=== PATIENT | female | born 1955 | race Caucasian/White ===

== ENCOUNTER 2017-03-13 13:31 | Day surgery (SDC) | payer OTHER ==
[2017-03-12 15:52] VITALS: BMI 38.5
[2017-03-13] VITALS (22 sets, daily range): BP systolic 86–147; BP diastolic 48–105; PULSE 60–82; RESP 16–41; Ht 160 cm; Wt 97.0 kg
[~2017-03-13] VITALS: Ht 160 cm; Wt 97.0 kg
[~2017-03-13 13:31] MED LIST: ACET5SOL PO; AMIT100T2 PO; ATEN-51 PO; ATOR20TA38 PO; CLOP75TA27 PO; CYAN100018 PO; ERGO500014 PO; FERR142T5 PO; GLIM4TAB PO; LANT3I SC; LEVO175T6 PO; MOVE FREE ULTR1 EACH PO; MULT-853 PO; OMEP20CA16 PO; ROPI4TAB21 PO; SITA100T8 PO; TIOT18CA INHALATION; TOPI-25 PO; UBID100T7 PO; ZOLP10TA5 PO
[2017-03-13] MEDS ORDERED: TYL2 PO (14:04)
[2017-03-13] MEDS ORDERED: AMIT50TA3 PO (14:05)
[2017-03-13] MEDS ORDERED: INSU300I SQ (14:06)
[2017-03-13] MEDS ORDERED: LEVO200T6 PO (14:07)
[2017-03-13] MEDS ORDERED: LISI2.5T59 PO (14:07)
[2017-03-13] MEDS ORDERED: TOPI200T8 PO (14:09)
[2017-03-13] MEDS ORDERED: ATOR40TA68 PO (14:09)
[2017-03-13] MEDS ORDERED: ERGO500037 PO (14:10)
[2017-03-13] MEDS ORDERED: MULT1TAB6 PO (14:11)
[2017-03-13] MEDS ORDERED: OMEG1CAP2 PO (14:13)
[2017-03-13] MEDS ORDERED: ONDA4TAB8 PO (14:14)
[2017-03-13] MEDS ORDERED: MIDAZOLAM 1 MG/ML 2 ML INJ ONE (15:30)
[2017-03-13] MEDS ORDERED: FENTAnyl 50 MCG/ML VIAL ONE ×2 (15:30→15:44)
[2017-03-13] MEDS ORDERED: LIDOCAINE 1% (MDV) 20 ML INJ ONE (15:30)
[2017-03-13] MEDS ORDERED: IODIXANOL LOCM 50 ML BTL ONE (15:30)
[2017-03-13] MEDS ORDERED: HYDROCODONE/APAP (5/325) TAB PO ONE (18:00)
--- NOTE | 2017-03-14 00:31 | OPR ---
DATE OF OPERATION: 03/13/2017 PREOPERATIVE DIAGNOSIS: Peripheral vascular disease. POSTOPERATIVE DIAGNOSIS: Peripheral vascular disease. PROCEDURES: 1. Abdominal aortogram. 2. Pelvic angiogram. 3. Bilateral lower extremity . 4. Right access 5-Filipino sheath. 5. Left access 7-Filipino sheath. 6. Ultrasound guidance into the central artery on the right and the left. 7. Interpretation and supervision of the angiogram. SURGEON: Rolf Robles MD ANESTHESIA: Local plus IV sedation. CONSENT: Risks, benefits, complications, alternative therapies explained to the patient and the [facility], consent obtained. OPERATIVE TECHNIQUE: The patient was placed in supine position, prepped and draped in usual sterile fashion, 1% lidocaine was used throughout the operation for local anesthesia. Under ultrasonic guidance, access was gained in the right common femoral artery. Guidewire was adva nced through without any difficulty. Subcutaneous tissues dilated. A 5-Filipino sheath was advanced without any resistance over a Bentson guidewire. Rim catheter was advanced into the abdominal aorta . Abdominal aortogram with pelvic angiogram was done. Interpretation and supervision of the aortogram revealed aorta normal, bilateral common iliac arteri es normal, bilateral internal iliac arteries normal, bilateral external iliac arteries normal, bilat eral common femoral arteries normal. Rim catheter was advanced from the right to left; however, there appeared to be a kink at the rim ca theter. We tried different guidewires to undo the kink; however, it would not be undone. Access wa s gained in the left common femoral artery. A 7-Filipino catheter was advanced over a Bentson wire, a nd using a snare, the kink in the rim catheter was undone, and the catheter was removed in its entir ety. Bilateral lower-extremity angiograms were done through the sheath. Interpretation and supervision of the angiogram revealed on the right side, the profunda femoris art jacobo appeared to be extensive vessel. Superficial femoral artery was 100% occluded. It reconstitute d distal to the superficial femoral artery. Popliteal artery and the trifurcations showed all 3 ves sels were opacified; however, the posterior tibial artery was a major blood vessel all the way down to the foot, without any stenosis. On the left side, the left profunda again was an extensive vesse l. Superficial femoral artery was 100% occluded. It reconstituted above the knee with trifurcation that appeared to be normal with 3-vessel runoff all the way down to the foot. At this time, both s heaths were removed, the procedure was terminated. This patient will be needing bilateral femoral popliteal bypass grafting. We discussed with the pat ient. Dictated By: ROLF SHARMA/NTS Conf#: [id number] DID#: [id number]
== END 2017-03-13 21:45 | disposition home or self-care (01) ==
LOC: SDS 13:31
PROVIDERS: ATTEND Thoracic Surgery (Cardiothoracic Vascular Surgery)
DX: I73.9 Peripheral vascular disease, unspecified (principal); I10 Essential (primary) hypertension; E11.65 Type 2 diabetes mellitus with hyperglycemia; E78.2 Mixed hyperlipidemia; I25.10 Atherosclerotic heart disease of native coronary artery without angina pectoris; E03.9 Hypothyroidism, unspecified
CPT/HCPCS: 36200; 75630; 75961; 82962; C1769; C1887; C1894; J1644; J2250; J3010; Q9967; Z7610

== ENCOUNTER 2017-05-20 05:33 | Inpatient (IN) | payer OTHER ==
[2017-05-19 17:22] VITALS: BMI 38.5
[2017-05-20] VITALS (21 sets, daily range): BP systolic 104–181; BP diastolic 47–82; PULSE 64–93; RESP 16–28; Ht 160 cm; Wt 96.0 kg
[~2017-05-20] VITALS: Ht 160 cm; Wt 96.0 kg
[~2017-05-20 05:33] MED LIST changes: -ACET5SOL PO; -AMIT100T2 PO; +AMIT50TA3 PO; -ATOR20TA38 PO; +ATOR40TA68 PO; -ERGO500014 PO; +ERGO500037 PO; +INSU300I SQ; -LANT3I SC; -LEVO175T6 PO; +LEVO200T6 PO; +LISI2.5T59 PO; -MOVE FREE ULTR1 EACH PO; -MULT-853 PO; +MULT1TAB6 PO; +OMEG1CAP2 PO; +ONDA4TAB8 PO; -TOPI-25 PO; +TOPI200T8 PO; +TYL2 PO
[2017-05-20] MEDS ORDERED: FURO20TA3 PO (07:29)
[2017-05-20] MEDS ORDERED: GLIM4TAB PO (07:38)
[2017-05-20 09:29] LABS: AADO2 Arterial 330.3 mmHg (7.0-24.0); Arterial Base Excess -8.3 mmol/L (-3.0-3); Arterial COHb 1.5 % (0.0-3.0); Arterial Fraction of Oxyhgb 96.9 % (93.0-99.0); Arterial HCO3 17.6 mmol/L (22.0-26.0); Arterial MetHb 0.5 % (0.0-1.5); Arterial Total Hemglobin 11.5 g/dl (12.0-18.0); MODE SURGERY
[2017-05-20] MEDS ORDERED: VANCOMYCIN 1 GM INJ IRR ONE (09:38)
[2017-05-20] MEDS: DEXTROSE 5%-0.45% NACL 1,000 ML IV SCH ×3 (09:43→19:05)
[2017-05-20] MEDS ORDERED: HEPARIN 1000 UNITS/NS 500 ML BAG IV ONE (09:44)
[2017-05-20] MEDS ORDERED: PROCHLORPERAZINE 10 MG INJ IV PRN (10:00)
[2017-05-20] MEDS ORDERED: LABETALOL HCL 20MG INJ IV PRN (10:00)
[2017-05-20] MEDS ORDERED: DIPHENHYDRAMINE 50 MG INJ IV PRN (10:00)
[2017-05-20] MEDS ORDERED: INSULIN ASPART [NOVOLOG] 3 ML PEN SC ONE (10:00)
[2017-05-20] MEDS ORDERED: EPHEDrine SULFATE 50 MG/5 ML SYG IV PRN (10:00)
[2017-05-20] MEDS ORDERED: hydrALAzine 20 MG INJ IV PRN (10:00)
[2017-05-20] MEDS ORDERED: TRIMETHOBENZAMIDE 100 MG/ML VIAL IM PRN (10:00)
[2017-05-20] MEDS ORDERED: METOCLOPRAMIDE 10 MG INJ IV PRN ×2 (10:00→15:30)
[2017-05-20] MEDS ORDERED: MEPERIDINE 25 MG INJ IV PRN (10:00)
[2017-05-20] MEDS ORDERED: HYDROmorphONE (0.2 MG/ML) 10ML SYG IV PRN (10:00)
[2017-05-20 10:05] LABS: POTASSIUM 3.3 mmol/L (3.5-5.1)
[2017-05-20] MEDS ORDERED: HEPARIN 10,000 UNITS/ML 1 ML INJ IRR ONE (10:34)
[2017-05-20 11:08] LABS: AADO2 Arterial 380.3 mmHg (7.0-24.0); Arterial Base Excess -9.6 mmol/L (-3.0-3); Arterial COHb 0.8 % (0.0-3.0); Arterial Fraction of Oxyhgb 97.8 % (93.0-99.0); Arterial HCO3 17.3 mmol/L (22.0-26.0); Arterial MetHb 0.5 % (0.0-1.5); Arterial Total Hemglobin 12.1 g/dl (12.0-18.0); MODE VENT - AC
[2017-05-20] MEDS ORDERED: THROMBIN 5000 UNIT VIAL TOP ONE (11:32)
--- NOTE | 2017-05-20 12:02 | OPR ---
Date/Time of Note Date/Time of Note DATE: 05/20/17 TIME: 11:58 Operative Report Procedure Date: May 20, 2017 Preoperative Diagnosis Peripheral vascular disease Postoperative Diagnosis Same Operation Performed Left femoral-popliteal bypass grafting using reversed saphenous vein Left femoral endarterectomy Left popliteal endarterectomy Endoscopic Ceftin saphenous vein harvesting Surgeon: SIDRA SO MD In Tube Conversion Technician: SYLVIA DUNBAR Anesthesia: general Estimated Blood Loss: 10 - 50 ml's Specimens None Grafts/Implants None Pt Condition Post Procedure: stable Indications Peripheral vascular disease Operative\Procedure Findings Patient was taken to the operating room after induction of general anesthesia prepped and draped in usual sterile fashion timeout was called antibiotics was given and I start I am endoscopic technique were used to harvest the saphenous vein from the left groin down to the knee Next the 8 cm incision was made in the groin and 8 cm incision was made in the medial aspect of the left knee The left common femoral artery profunda femoris artery and superficial femoral artery were identified at the Left popliteal artery was identified at the knee Vessel loops were passed around all the artery Patient was given 5000 units of IV heparin the saphenous vein was removed and checks it appeared to have no leak Vascular clamps were applied and the common femoral artery was opened using a 1 cm longitudinal artery Endarterectomy of the common femoral artery was was done Proximal anastomosis was done from the vein to the in femoral artery using 6-0 Prolene continuous suture technique to the beveled end of the vein The distal anastomosis was done in a similar fashion after endarterectomy to the level end of the vein to 1 cm longitudinal arteriotomy at the popliteal artery Both anastomoses were done with 6-0 Prolene continuous suture to Patient had a strong Doppler signal over the popliteal artery distal to the anastomosis Both wounds were irrigated and closed in 2 layers of 2-0 Vicryl suture for the deep 3-0 Vicryl suture for subcu and lennox for the skin Patient tolerated procedure well SIDRA SO MD May 20, 2017 12:02
[2017-05-20] MEDS: HYDROmorphONE (0.2 MG/ML) 10ML SYG IV PRN ×3 (12:47→14:23)
--- NOTE | 2017-05-20 14:57 | HP ---
Date/Time of Note Date/Time of Note DATE: 05/20/17 TIME: 14:44 Assessment/Plan VTE Prophylaxis VTE Prophylaxis Intervention: SCD's Lines/Catheters IV Catheter Type (from Nrs): A Line Urinary Cath still in place: Yes Reason Cath still needed: urinary retention Assessment/Plan Assessment/Plan -Bilateral superficial femoral occlusion status post left femoropopliteal bypass by Dr. Robles. Admit to ICU, continue to follow-up vascular surgery recommendation. -Sleep apnea, continue BiPAP overnight, Dr. Winkler is asked to see patient in pulmonology consultation. -COPD with long-term tobacco use -Diabetes mellitus -Hypertension -Chronic kidney disease stage III -Hypothyroidism, continue levothyroxine Further recommendations based on clinical course. Plan of care discussed with Dr. Juarez. HPI/ROS Admit Date/Time Admit Date/Time May 20, 2017 at 05:33 Hx of Present Illness The patient is 62-year-old female with history of peripheral vascular disease, history of coronary artery disease, status post stents placement in the past, diabetes mellitus, history of CVA in the past, long-standing tobacco dependence with COPD, sleep apnea. Patient is using BiPAP at night at home. Patient also with history of chronic kidney disease stage III, GERD, hypertension, hypothyroidism, anxiety, osteoarthritis. Patient has bilateral superficial femoral occlusion. Patient was evaluated by Dr. Robles in vascular surgery consultation patient was brought to the hospital and underwent left femoral- popliteal bypass grafting using reversed saphenous vein, left femoral endarterectomy, left popliteal endarterectomy. Postoperatively patient will be admitted for further evaluation and management to intensive care unit. ROS Constitutional: no complaints Respiratory: no complaints Cardiovascular: no complaints Gastrointestinal: no complaints Genitourinary: no complaints Musculoskeletal: no complaints Neurologic: no complaints Psychological: no complaints PMH/Family/Social Past Medical History Per HPI Medical History: coronary artery disease, diabetes, GERD, hypertension, hypothyroid, renal disease Past Surgical History Status post left endarterectomy in March 2016, status post coronary stent placement, details are not available. Family History Significant Family History: no pertinent family hx Social History Alcohol Use: none Smoking Status: Current every day smoker Drug Use: none Exam/Review of Systems Vital Signs Vitals Vital Signs Date Time Temp Pulse Resp B/P Pulse Ox O2 Delivery O2 Flow Rate FiO2 05/20/17 13:08 70 18 133/51 98 Nasal Cannula 2.0 05/20/17 12:07 98.2 Labs Result Diagram: 05/20/17 0914 Medications Medications Current Medications Dextrose/Sodium Chloride (D5-1/2ns) 1,000 ml @ 60 mls/hr [id number] IV Last administered on 05/20/17t 12:14; Start 05/20/17 at 06:30 IGLESIA MENSAH May 20, 2017 14:56
[2017-05-20] MEDS ORDERED: GLUCOSE GEL 15 GRAM TUBE BUCCAL PRN (15:30)
[2017-05-20] MEDS ORDERED: ALBUTEROL 0.083% (NEB) 2.5 MG/3 ML AMP NEB PRN (15:30)
[2017-05-20] MEDS ORDERED: GLUCAGON 1 MG INJ IM PRN (15:30)
[2017-05-20] MEDS ORDERED: DEXTROSE 50% 50 ML SYRINGE IV PRN ×2 (15:30)
[2017-05-20] MEDS ORDERED: NACL 0.9% 3 ML SYG IV SCH (15:30)
[2017-05-20] MEDS ORDERED: IPRATROPIUM (NEB) 0.5 MG/2.5 ML AMP NEB PRN (15:30)
[2017-05-20] MEDS ORDERED: GLUCOSE GEL 15 GRAM TUBE PO PRN ×2 (15:30)
[2017-05-20] MEDS ORDERED: ACETAMINOPHEN 650MG/20.3ML CUP PO PRN (15:30)
[2017-05-20] MEDS: FENTAnyl 50 MCG/ML VIAL IV PRN ×2 (15:37→16:15)
[2017-05-20] MEDS: INSULIN ASPART [NOVOLOG] 3 ML PEN SC SCH ×2 (18:00→20:32)
[2017-05-20] MEDS ORDERED: ACETAMINOPHEN 1000MG/100ML IV 100 ML ONE (18:03)
[2017-05-20] MEDS ORDERED: DEXTROSE 50% 50 ML SYRINGE ONE (18:03)
[2017-05-20] MEDS ORDERED: METOPROLOL 5 MG INJ ONE (18:03)
[2017-05-20] MEDS ORDERED: SCOPOLAMINE 1.5 MG PATCH ONE (18:03)
[2017-05-20] MEDS ORDERED: GLYCOPYRROLATE 1 MG INJ ONE (18:03)
[2017-05-20] MEDS ORDERED: GELATIN SIZE 100 SPONGE ONE (18:03)
[2017-05-20] MEDS ORDERED: ETOMIDATE 20 MG INJ ONE (18:03)
[2017-05-20] MEDS ORDERED: NA BICARBONATE 8.4% 50 ML SYG ONE (18:03)
[2017-05-20] MEDS ORDERED: METOCLOPRAMIDE 10 MG INJ ONE (18:03)
[2017-05-20] MEDS ORDERED: MIDAZOLAM 1 MG/ML 2 ML INJ ONE ×2 (18:03)
[2017-05-20] MEDS ORDERED: PHENYLephrine (100 MCG/ML) 5ML SYG ONE (18:03)
[2017-05-20] MEDS ORDERED: FAMOTIDINE 20 MG INJ ONE (18:03)
[2017-05-20] MEDS ORDERED: THROMBIN 5000 UNIT VIAL ONE (18:03)
[2017-05-20] MEDS ORDERED: NEOSTIGMINE 3 MG/3 ML SYRINGE ONE (18:03)
[2017-05-20] MEDS ORDERED: PROVENTIL HFA 6.7GM INHALER ONE (18:03)
[2017-05-20] MEDS ORDERED: EPHEDrine SULFATE 50 MG/5 ML SYG ONE (18:03)
[2017-05-20] MEDS ORDERED: HEPARIN 1000 UNITS/ML 10 ML INJ ONE ×2 (18:03)
[2017-05-20] MEDS ORDERED: KETAMINE 500 MG INJ ONE (18:03)
[2017-05-20] MEDS ORDERED: VANCOMYCIN 1 GM INJ ONE (18:03)
[2017-05-20] MEDS ORDERED: ROCURONIUM 50 MG INJ ONE (18:03)
[2017-05-20] MEDS ORDERED: PROPOFOL 20 ML ONE (18:03)
[2017-05-20] MEDS ORDERED: FENTAnyl 50 MCG/ML VIAL ONE ×3 (18:03)
[2017-05-20] MEDS ORDERED: LABETALOL HCL 20MG INJ ONE ×2 (18:03)
[2017-05-20] MEDS ORDERED: CEFAZOLIN 1 GM/50 ML (PMX) 50 ML IVPB ONE (18:07)
[2017-05-20] MEDS: CEFAZOLIN 1 GM/50 ML (PMX) 50 ML IVPB SCH (18:56)
[2017-05-20] MEDS: morphine 2 MG INJ IV PRN ×2 (19:04→22:24)
[2017-05-20] MEDS ORDERED: [UNRECOGNIZED DRUG - OTHER] SQ SCH (21:00)
[2017-05-20] MEDS ORDERED: INSULIN GLARGINE HUM REC ANLOG 60 UNIT SQ SCH (21:00)
[2017-05-20] MEDS: AMITRIPTYLINE 50 MG TAB PO SCH (21:05)
[2017-05-20] MEDS: TOPIRAMATE 100 MG TAB PO SCH (21:05)
[2017-05-20] MEDS: HYDROCODONE/APAP (5/325) TAB PO PRN (21:05)
[2017-05-20] MEDS: ATORVASTATIN 40 MG TAB PO SCH (21:05)
[2017-05-20] MEDS: ZOLPIDEM 5 MG TAB PO SCH (22:25)
[2017-05-21] VITALS (19 sets, daily range): BP systolic 88–133; BP diastolic 32–52; PULSE 73–94; RESP 15–29
[2017-05-21] MEDS: CEFAZOLIN 1 GM/50 ML (PMX) 50 ML IVPB SCH ×2 (02:00→11:01)
[2017-05-21] MEDS ORDERED: ACCU-CHEK XX SCH ×2 (02:00)
[2017-05-21] MEDS: morphine 2 MG INJ IV PRN ×2 (02:10→08:02)
[2017-05-21] MEDS: HYDROCODONE/APAP (5/325) TAB PO PRN (04:27)
[2017-05-21] MEDS: PANTOPRAZOLE (EC) 40 MG TAB PO SCH (06:03)
[2017-05-21] MEDS: LEVOTHYROXINE 112 MCG TAB PO SCH (06:03)
[2017-05-21 06:52] LABS: BASOPHIL # 0.1 10^3/ul (0.0-0.1); BASOPHILS % 0.7 % (0.0-2.0); EOSINOPHILS # 0.1 10^3/ul (0.0-0.5); EOSINOPHILS % 0.4 % (0.0-7.0); HEMATOCRIT 34.1 % (37.0-47.0); HEMOGLOBIN 10.9 g/dl (12.0-16.0); LYMPHOCYTES # 2.4 10^3/ul (0.8-2.9); LYMPHOCYTES % 16.7 % (15.0-51.0); MEAN CORPUSCULAR HEMOGLOBIN 30.8 pg (29.0-33.0); MEAN CORPUSCULAR VOLUME 96.3 fl (82.0-101.0); MEAN PLATELET VOLUME 10.3 fl (7.4-10.4); MONOCYTE # 0.8 10^3/ul (0.3-0.9); MONOCYTES % 5.4 % (0.0-11.0); NEUTROPHIL # 10.8 10^3/ul (1.6-7.5); NEUTROPHILS % 76.1 % (39.0-77.0); PLATELET COUNT 265 10^3/UL (140-415); RED BLOOD COUNT 3.54 10^6/ul (4.20-5.40); RED CELL DISTRIBUTION WIDTH 13.2 % (11.5-14.5); WHITE BLOOD COUNT 14.2 10^3/ul (4.8-10.8)
[2017-05-21 07:39] LABS: CALCIUM 8.4 mg/dl (8.4-10.2); CREATININE 1.39 mg/dl (0.44-1.00)
[2017-05-21] MEDS: INSULIN ASPART [NOVOLOG] 3 ML PEN SC SCH ×6 (08:21→21:39)
[2017-05-21] MEDS: ATENOLOL 25 MG TAB PO SCH (08:23)
[2017-05-21] MEDS: TOPIRAMATE 100 MG TAB PO SCH ×2 (08:23→21:34)
[2017-05-21] MEDS: CLOPIDOGREL 75 MG TAB PO SCH (08:23)
[2017-05-21] MEDS: LINAGLIPTIN 5 MG TABLET PO SCH (08:24)
[2017-05-21] MEDS: LISINOPRIL 5 MG TAB PO SCH (08:24)
[2017-05-21] MEDS ORDERED: ERGOCALCIFEROL 50,000 UNIT CAP PO SCH (09:00)
--- NOTE | 2017-05-21 10:06 | CONS ---
Date/Time of Note Date/Time of Note DATE: 05/21/17 TIME: 10:02 Assessment/Plan Assessment/Plan Chief Complaint/Hosp Course Assessment 1. Hypoxemic and hypercapnic respiratory failure postoperatively likely secondary to alveolar hypoventilation 2. History of COPD 3. History of obstructive sleep apnea 4. Morbid obesity 5. Peripheral vascular disease status post femoropopliteal bypass 6. Diabetes mellitus Plan 1. Nocturnal noninvasive positive pressure ventilation 2. Outpatient sleep study follow-up 3. Surgical recommendations 4. Encourage out of bed if okay with surgery 5. Incentive spirometry and bronchodilators 6. DVT and GI prophylaxis Disposition Patient stable to be transferred to telemetry floor. Problems: Consultation Date/Type/Reason Admit Date/Time May 20, 2017 at 05:33 Date of Consultation: May 21, 2017 Reason for Consultation Shortness of breath Hx of Present Illness 62-year-old lady with a history of obstructive sleep apnea peripheral vascular disease, underwent left femoropopliteal bypass yesterday postoperatively experienced mild hypoxemia requiring initiation of CPAP therapy. In addition to obstructive sleep apnea she has a long-standing history of COPD with tobacco use. No recent exacerbations of his COPD prior to the surgery. She remains stable overnight in our intensive care unit this morning is comfortable in no acute distress. She has mild pain over her incision site. Past medical history includes chronic kidney disease gastroesophageal reflux disease hypertension hyperlipidemia hypothyroidism and diabetes mellitus. Respiratory: no complaints Cardiovascular: no complaints Gastrointestinal: no complaints Genitourinary: no complaints Musculoskeletal: no complaints Neurologic: no complaints Psychological: no complaints Past Medical History Obstructive sleep apnea COPD Diabetes mellitus Peripheral vascular disease Medical History: coronary artery disease, diabetes, GERD, hypertension, hypothyroid, renal disease Social History Alcohol Use: none Smoking Status: Former smoker Drug Use: none Exam/Review of Systems Vital Signs Vitals Vital Signs Date Time Temp Pulse Resp B/P Pulse Ox O2 Delivery O2 Flow Rate FiO2 05/21/17 09:00 81 19 120/48 96 Room Air 05/21/17 08:00 98.9 05/20/17 21:41 21 05/20/17 20:00 2.0 Intake and Output 05/20/17 05/20/17 05/21/17 15:00 23:00 07:00 Intake Total 1750 ml 500 ml Output Total 640 ml 850 ml Balance 1110 ml -350 ml Exam GENERAL: Morbidly obese lady comfortable at rest no acute distress VITAL SIGNS: per chart NECK: Supple. No JVD or lymphadenopathy. CARDIAC EXAM: S1, S2. No added sounds or murmurs. CHEST: clear bilaterally, No added sounds, rales or wheezes ABDOMEN: Soft, nontender. No guarding or rebound. EXTREMITIES: No cyanosis, clubbing or edema. NEUROLOGIC: Generalized weakness. No focal deficits. Results Result Diagram: 05/21/17 0621 05/21/17 0621 Results 24 hrs Laboratory Tests Test 05/20/17 10:48 05/20/17 11:24 05/20/17 12:14 05/20/17 16:02 Blood Gas Specimen Source Blood arterial Arterial Blood Date Drawn 05/20/2017 11:00:50 AM Arterial Blood pH (Temp corrected) 7.235 *L Arterial Blood pCO2 (Temp correct) 41.8 Arterial Blood pO2 (Temp corrected) 290.9 H Arterial Blood HCO3 17.3 L Arterial Blood Base Excess -9.6 L Arterial Blood Oxygen Saturation 99.1 H Hector Test N/A Arterial Blood Gas Puncture Site A-Line Arterial Blood Carboxyhemoglobin 0.8 Arterial Blood Methemoglobin 0.5 Blood Gas A-a O2 Differential 380.3 H Oxyhemoglobin Percent 97.8 Total Hemoglobin 12.1 Blood Gas Temperature 37.0 Blood Gas Respiration Rate 13.0 Blood Gas Actual Respiration Rate 36 Blood Gas Modality VENT - AC FiO2 100.0 Blood Gas Tidal Volume 500.0 Blood Gas Low PEEP Setting 4.0 Blood Gas Critical Value Read Back [place] [facility] Blood Gas Notified Whom MDA Blood Gas Notified Time 05/20/2017 11:08:05 AM Bedside Glucose 174 223 H 150 Test 05/20/17 20:27 05/21/17 02:02 05/21/17 06:21 05/21/17 08:13 Bedside Glucose 280 H 234 H 224 H White Blood Count 14.2 #H Red Blood Count 3.54 L Hemoglobin 10.9 L Hematocrit 34.1 L Mean Corpuscular Volume 96.3 Mean Corpuscular Hemoglobin 30.8 Mean Corpuscular Hemoglobin Concent 32.0 Red Cell Distribution Width 13.2 Platelet Count 265 Mean Platelet Volume 10.3 Neutrophils % 76.1 Lymphocytes % 16.7 Monocytes % 5.4 Eosinophils % 0.4 Basophils % 0.7 Nucleated Red Blood Cells % 0.0 Neutrophils # 10.8 H Lymphocytes # 2.4 Monocytes # 0.8 Eosinophils # 0.1 Basophils # 0.1 Nucleated Red Blood Cells # 0.0 Sodium Level 138 Potassium Level 4.0 Chloride Level 104 Carbon Dioxide Level 20 L Anion Gap 18 H Blood Urea Nitrogen 21 H Creatinine 1.39 H Glucose Level 245 #H Calcium Level 8.4 Medications Medications Current Medications Dextrose/Sodium Chloride (D5-1/2ns) 1,000 ml @ 60 mls/hr [id number] IV Last administered on 05/21/17 00:00; Admin Dose 60 MLS/HR; Start 05/20/17 at 06:30 Amitriptyline HCl (Elavil) 50 mg QHS PO Last administered on 05/20/17 21:05; Admin Dose 50 MG; Start 05/20/17 at 21:00 Atenolol (Tenormin) 25 mg DAILY PO Last administered on 05/21/17 08:23; Admin Dose 25 MG; Start 05/21/17 at 09:00 Atorvastatin Calcium (Lipitor) 40 mg QHS PO Last administered on 05/20/17 21: 05; Admin Dose 40 MG; Start 05/20/17 at 21:00 Clopidogrel Bisulfate (plaVIX) 75 mg DAILY PO Last administered on 05/21/17 08 :23; Admin Dose 75 MG; Start 05/21/17 at 09:00 Levothyroxine Sodium (Synthroid) 224 mcg DAILY@06 PO Last administered on 06:03; Admin Dose 224 MCG; Start 05/21/17 at 06:00 Lisinopril (Zestril) 2.5 mg DAILY PO Last administered on 05/21/17 08:24; Admin Dose 2.5 MG; Start 05/21/17 at 09:00 Tiotropium [place] (Spiriva) 1 inh DAILY INH ; Start 05/21/17 at 09:00 Topiramate (Topamax) 200 mg BID PO Last administered on 05/21/17 08:23; Admin Dose 200 MG; Start 05/20/17 at 21:00 Zolpidem Tartrate (Ambien) 10 mg QHS PO Last administered on 05/20/17 22:25; Admin Dose 10 MG; Start 05/20/17 at 21:00 Miscellaneous Information 60 unit BID SQ ; Start 05/20/17 at 21:00; Status UNV Linagliptin (Tradjenta) 5 mg DAILY PO Last administered on 05/21/17 08:24; Admin Dose 5 MG; Start 05/21/17 at 09:00 Metoclopramide HCl (Reglan) 10 mg Q6H PRN IV NAUSEA AND/OR VOMITING; Start at 15:30 Acetaminophen (Tylenol Liquid) 650 mg Q6H PRN PO PAIN LEVEL 1-3 OR FEVER; Start 05/20/17 at 15:30 Acetaminophen/ Hydrocodone Bitart ([place] (5/325)) 1 tab Q6H PRN PO PAIN LEVEL 4 -6 Last administered on 05/21/17 04:27; Admin Dose 1 TAB; Start 05/20/17 at 15: 30 Morphine Sulfate (morphine) 2 mg Q4H PRN IV PAIN LEVEL 7-10 Last administered on 05/21/17 08:02; Admin Dose 2 MG; Start 05/20/17 at 15:30 Pantoprazole (Protonix Tab) 40 mg DAILY@06 PO Last administered on 05/21/17 06 :03; Admin Dose 40 MG; Start 05/21/17 at 06:00 Diagnostic Test (Pha) (Accu-Chek) 1 ea 02 XX Last administered on 05/21/17 02: 03; Admin Dose 1 EA; Start 05/21/17 at 02:00 Miscellaneous Information 1 ea NOTE XX ; Start 05/20/17 at 15:30 Glucose (Glutose) 15 gm Q15M PRN PO DECREASED GLUCOSE; Start 05/20/17 at 15:30 Glucose (Glutose) 22.5 gm Q15M PRN PO DECREASED GLUCOSE; Start 05/20/17 at 15: 30 Dextrose (D50w Syringe) 25 ml Q15M PRN IV DECREASED GLUCOSE; Start 05/20/17 at 15:30 Dextrose (D50w Syringe) 50 ml Q15M PRN IV DECREASED GLUCOSE; Start 05/20/17 at 15:30 Glucagon (Glucagen) 1 mg Q15M PRN IM DECREASED GLUCOSE; Start 05/20/17 at 15:30 Glucose 15 gm 15 gm Q15M PRN BUCCAL DECREASED GLUCOSE; Start 05/20/17 at 15:30 Cefazolin Sodium (Ancef 1 Gm/50 ml (Pmx)) 50 ml @ 100 mls/hr Q8H IVPB Last administered on 05/21/17t 02:00; Admin Dose 100 MLS/HR; Start 05/20/17 at 18:00 ; Stop 05/21/17 at 10:29 [facility] MORGAN MD[facility] May 21, 2017 10:06
[2017-05-21] MEDS ORDERED: GLUCOSE GEL 15 GRAM TUBE BUCCAL PRN (11:00)
[2017-05-21] MEDS ORDERED: GLUCOSE GEL 15 GRAM TUBE PO PRN ×2 (11:00)
[2017-05-21] MEDS ORDERED: DEXTROSE 50% 50 ML SYRINGE IV PRN ×2 (11:00)
[2017-05-21] MEDS ORDERED: GLUCAGON 1 MG INJ IM PRN (11:00)
[2017-05-21] MEDS: TIOTROPIUM 18 MCG CAPSULE INHA DEV INH SCH (11:02)
[2017-05-21] MEDS ORDERED: INSULIN ASPART [NOVOLOG] 3 ML PEN SC SCH (11:30)
--- NOTE | 2017-05-21 11:44 | PN ---
Date/Time of Note Date/Time of Note DATE: 05/21/17 TIME: 11:44 Assessment/Plan VTE Prophylaxis VTE Prophylaxis Intervention: other Lines/Catheters IV Catheter Type (from Nrsg): Peripheral IV Urinary Cath still in place: Yes Reason Cath still needed: skin wounds contaminated by urine Assessment/Plan Chief Complaint/Hosp Course -Bilateral superficial femoral occlusion status post left femoropopliteal bypass by Dr. Robles. Admit to ICU, continue to follow-up vascular surgery recommendation. -Sleep apnea, continue BiPAP overnight, Dr. Winkler is asked to see patient in pulmonology consultation. -COPD with long-term tobacco use -Diabetes mellitus -Hypertension -Chronic kidney disease stage III -Hypothyroidism, continue levothyroxine Problems: Subjective 24 Hr Interval Summary Free Text/Dictation Patient has no complaints Exam/Review of Systems Vital Signs Vitals Vital Signs Date Time Temp Pulse Resp B/P Pulse Ox O2 Delivery O2 Flow Rate FiO2 05/21/17 11:00 87 24 88/52 96 Room Air 05/21/17 08:00 98.9 05/20/17 21:41 21 05/20/17 20:00 2.0 Intake and Output 05/20/17 05/20/17 05/21/17 15:00 23:00 07:00 Intake Total 1750 ml 500 ml Output Total 640 ml 850 ml Balance 1110 ml -350 ml Exam Constitutional: well developed Head: atraumatic, normocephalic Neck: supple Respiratory: diminished breath sounds Cardiovascular: regular rate and rhythm Gastrointestinal: non-tender, soft Extremities: normal pulses Results Result Diagram: 05/21/1721 05/21/17 0621 Results 24 hrs Laboratory Tests Test 05/20/17 12:14 05/20/17 16:02 05/20/17 20:27 05/21/17 02:02 Bedside Glucose 223 H 150 280 H 234 H Test 05/21/17 06:21 05/21/17 08:13 05/21/17 10:21 White Blood Count 14.2 #H Red Blood Count 3.54 L Hemoglobin 10.9 L Hematocrit 34.1 L Mean Corpuscular Volume 96.3 Mean Corpuscular Hemoglobin 30.8 Mean Corpuscular Hemoglobin Concent 32.0 Red Cell Distribution Width 13.2 Platelet Count 265 Mean Platelet Volume 10.3 Neutrophils % 76.1 Lymphocytes % 16.7 Monocytes % 5.4 Eosinophils % 0.4 Basophils % 0.7 Nucleated Red Blood Cells % 0.0 Neutrophils # 10.8 H Lymphocytes # 2.4 Monocytes # 0.8 Eosinophils # 0.1 Basophils # 0.1 Nucleated Red Blood Cells # 0.0 Sodium Level 138 Potassium Level 4.0 Chloride Level 104 Carbon Dioxide Level 20 L Anion Gap 18 H Blood Urea Nitrogen 21 H Creatinine 1.39 H Glucose Level 245 #H Calcium Level 8.4 Bedside Glucose 224 H Hemoglobin A1c 7.0 H Medications Medications Current Medications Dextrose/Sodium Chloride (D5-1/2ns) 1,000 ml @ 60 mls/hr [id number] IV Last administered on 05/21/17 00:00; Admin Dose 60 MLS/HR; Start 05/20/17 at 06:30 Amitriptyline HCl (Elavil) 50 mg QHS PO Last administered on 05/20/17 21:05; Admin Dose 50 MG; Start 05/20/17 at 21:00 Atenolol (Tenormin) 25 mg DAILY PO Last administered on 05/21/17 08:23; Admin Dose 25 MG; Start 05/21/17 at 09:00 Atorvastatin Calcium (Lipitor) 40 mg QHS PO Last administered on 05/20/17 21: 05; Admin Dose 40 MG; Start 05/20/17 at 21:00 Clopidogrel Bisulfate (plaVIX) 75 mg DAILY PO Last administered on 05/21/17 08 :23; Admin Dose 75 MG; Start 05/21/17 at 09:00 Levothyroxine Sodium (Synthroid) 224 mcg DAILY@06 PO Last administered on 06:03; Admin Dose 224 MCG; Start 05/21/17 at 06:00 Lisinopril (Zestril) 2.5 mg DAILY PO Last administered on 05/21/17 08:24; Admin Dose 2.5 MG; Start 05/21/17 at 09:00 Tiotropium [place] (Spiriva) 1 inh DAILY INH Last administered on 05/21/17 11: 02; Admin Dose 1 INH; Start 05/21/17 at 09:00 Topiramate (Topamax) 200 mg BID PO Last administered on 05/21/17 08:23; Admin Dose 200 MG; Start 05/20/17 at 21:00 Zolpidem Tartrate (Ambien) 10 mg QHS PO Last administered on 05/20/17 22:25; Admin Dose 10 MG; Start 05/20/17 at 21:00 Linagliptin (Tradjenta) 5 mg DAILY PO Last administered on 05/21/17 08:24; Admin Dose 5 MG; Start 05/21/17 at 09:00 Metoclopramide HCl (Reglan) 10 mg Q6H PRN IV NAUSEA AND/OR VOMITING; Start at 15:30 Acetaminophen (Tylenol Liquid) 650 mg Q6H PRN PO PAIN LEVEL 1-3 OR FEVER; Start 05/20/17 at 15:30 Acetaminophen/ Hydrocodone Bitart ([place] (5/325)) 1 tab Q6H PRN PO PAIN LEVEL 4 -6 Last administered on 05/21/17 04:27; Admin Dose 1 TAB; Start 05/20/17 at 15: 30 Morphine Sulfate (morphine) 2 mg Q4H PRN IV PAIN LEVEL 7-10 Last administered on 05/21/17 08:02; Admin Dose 2 MG; Start 05/20/17 at 15:30 Pantoprazole (Protonix Tab) 40 mg DAILY@06 PO Last administered on 05/21/17 06 :03; Admin Dose 40 MG; Start 05/21/17 at 06:00 Diagnostic Test (Pha) (Accu-Chek) 1 ea 02 XX Last administered on 05/21/17 02: 03; Admin Dose 1 EA; Start 05/21/17 at 02:00 Miscellaneous Information 1 ea NOTE XX ; Start 05/20/17 at 15:30 Glucose (Glutose) 15 gm Q15M PRN PO DECREASED GLUCOSE; Start 05/20/17 at 15:30 Glucose (Glutose) 22.5 gm Q15M PRN PO DECREASED GLUCOSE; Start 05/20/17 at 15: 30 Dextrose (D50w Syringe) 25 ml Q15M PRN IV DECREASED GLUCOSE; Start 05/20/17 at 15:30 Dextrose (D50w Syringe) 50 ml Q15M PRN IV DECREASED GLUCOSE; Start 05/20/17 at 15:30 Glucagon (Glucagen) 1 mg Q15M PRN IM DECREASED GLUCOSE; Start 05/20/17 at 15:30 Glucose (Glutose) 15 gm Q15M PRN BUCCAL DECREASED GLUCOSE; Start 05/20/17 at 15 :30 Diagnostic Test (Pha) (Accu-Chek) 1 ea 02 XX ; Start 05/22/17 at 02:00 Diagnostic Test (Pha) (Accu-Chek) 1 ea 02 XX ; Start 05/22/17 at 02:00 Miscellaneous Information 1 ea NOTE XX ; Start 05/21/17 at 11:00 Glucose (Glutose) 15 gm Q15M PRN PO DECREASED GLUCOSE; Start 05/21/17 at 11:00 Glucose (Glutose) 22.5 gm Q15M PRN PO DECREASED GLUCOSE; Start 05/21/17 at 11: 00 Dextrose (D50w Syringe) 25 ml Q15M PRN IV DECREASED GLUCOSE; Start 05/21/17 at 11:00 Dextrose (D50w Syringe) 50 ml Q15M PRN IV DECREASED GLUCOSE; Start 05/21/17 at 11:00 Glucagon (Glucagen) 1 mg Q15M PRN IM DECREASED GLUCOSE; Start 05/21/17 at 11:00 Glucose (Glutose) 15 gm Q15M PRN BUCCAL DECREASED GLUCOSE; Start 05/21/17 at 11 :00 Insulin Glargine (Lantus) 20 unit DAILY@08 SC ; Start 05/21/17 at 12:00 Hydromorphone HCl (Dilaudid) 1 mg Q4H PRN IV PAIN; Start 05/21/17 at 12:00 Amitriptyline HCl (Elavil) 50 mg QHS PO ; Start 05/21/17 at 21:00; Status UNV Atenolol (Tenormin) 25 mg DAILY PO ; Start 05/22/17 at 09:00; Status UNV Atorvastatin Calcium (Lipitor) 40 mg QHS PO ; Start 05/21/17 at 21:00; Status UNV Clopidogrel Bisulfate (plaVIX) 75 mg DAILY PO ; Start 05/22/17 at 09:00; Status UNV Ferrous Sulfate (Slow Fe) 45 mg DAILY PO ; Start 05/21/17 at 12:00; Status UNV Furosemide (Lasix) 20 mg DAILY PO ; Start 05/22/17 at 09:00; Status UNV Glimepiride (Amaryl) 4 mg BID PO ; Start 05/21/17 at 21:00; Status UNV Lisinopril (Zestril) 2.5 mg DAILY PO ; Start 05/22/17 at 09:00; Status UNV Ondansetron HCl (Zofran Tab) 4 mg Q6H PRN PO NAUSEA AND/OR VOMITING; Start at 12:00; Status UNV Topiramate (Topamax) 200 mg BID PO ; Start 05/21/17 at 21:00; Status UNV Zolpidem Tartrate (Ambien) 10 mg QHS PO ; Start 05/21/17 at 21:00; Status UNV DANIELLA LUDWIG May 21, 2017 11:44
[2017-05-21] MEDS ORDERED: ONDANSETRON 4 MG TAB PO PRN (12:00)
[2017-05-21] MEDS ORDERED: FERROUS SULFATE (SR) 142 MG TAB PO SCH (12:00)
[2017-05-21] MEDS: INSULIN GLARGINE [LANtus] 3 ML PEN SC SCH (12:39)
[2017-05-21] MEDS: HYDROmorphONE 1 MG/ML SYG IV PRN ×2 (13:51→21:20)
[2017-05-21] MEDS: DEXTROSE 5%-0.45% NACL 1,000 ML IV SCH ×2 (15:10)
--- NOTE | 2017-05-21 20:17 | PN ---
Date/Time of Note Date/Time of Note DATE: 05/21/17 TIME: 20:15 Assessment/Plan Lines/Catheters IV Catheter Type (from Nrsg): Peripheral IV [place] in Place (from Nrsg): Yes Assessment/Plan Assessment/Plan Status post left femoral-popliteal bypass grafting using reverse saphenous vein with femoral endarterectomy Patient has strong Doppler signals over the dorsalis pedis and the posterior tibial artery No signs of ischemia We will continue local wound care Ambulation Pulmonary toilet Optimize vascular status Subjective 24 Hr Interval Summary Constitutional: improved Pain Control: mild Exam/Review of Systems Vital Signs Vitals Vital Signs Date Time Temp Pulse Resp B/P Pulse Ox O2 Delivery O2 Flow Rate FiO2 05/21/17 18:00 73 109/51 99 Nasal Cannula 05/21/17 16:00 98.1 05/21/17 11:00 24 05/20/17 21:41 21 05/20/17 20:00 2.0 Intake and Output 05/20/17 05/20/17 05/21/17 15:00 23:00 07:00 Intake Total 1750 ml 500 ml Output Total 640 ml 850 ml Balance 1110 ml -350 ml Exam Neck: non-tender, supple Respiratory: clear to auscultation, normal air movement Cardiovascular: nl pulses, regular rate and rhythm Gastrointestinal: nl liver, spleen, non-tender, soft Extremities: normal pulses Results Result Diagram: 05/21/17 0621 05/21/17 0621 SIDRA SO MD May 21, 2017 20:17
[2017-05-21] MEDS ORDERED: ZOLPIDEM 5 MG TAB PO SCH (21:00)
[2017-05-21] MEDS ORDERED: GLIMEPIRIDE 4 MG TAB PO SCH (21:00)
[2017-05-21] MEDS ORDERED: TOPIRAMATE 100 MG TAB PO SCH (21:00)
[2017-05-21] MEDS ORDERED: ATORVASTATIN 40 MG TAB PO SCH (21:00)
[2017-05-21] MEDS ORDERED: AMITRIPTYLINE 50 MG TAB PO SCH (21:00)
[2017-05-21] MEDS: ZOLPIDEM 5 MG TAB PO SCH (21:33)
[2017-05-21] MEDS: AMITRIPTYLINE 50 MG TAB PO SCH (21:33)
[2017-05-21] MEDS: ATORVASTATIN 40 MG TAB PO SCH (21:33)
[2017-05-22] VITALS (20 sets, daily range): BP systolic 90–123; BP diastolic 38–94; PULSE 71–92; RESP 14–27
[2017-05-22] MEDS: ACCU-CHEK XX SCH ×3 (01:55→22:07)
[2017-05-22] MEDS ORDERED: ACCU-CHEK XX SCH (02:00)
[2017-05-22] MEDS: HYDROmorphONE 1 MG/ML SYG IV PRN ×4 (05:20→21:00)
[2017-05-22] MEDS: PANTOPRAZOLE (EC) 40 MG TAB PO SCH (05:36)
[2017-05-22] MEDS: LEVOTHYROXINE 112 MCG TAB PO SCH (05:36)
[2017-05-22] MEDS: DEXTROSE 5%-0.45% NACL 1,000 ML IV SCH (05:37)
[2017-05-22] MEDS ORDERED: LEVOTHYROXINE 100 MCG TAB PO SCH (07:00)
--- NOTE | 2017-05-22 07:00 | PN ---
Date/Time of Note Date/Time of Note DATE: 05/22/17 TIME: 06:59 Assessment/Plan VTE Prophylaxis VTE Prophylaxis Intervention: other Lines/Catheters IV Catheter Type (from Nrsg): Saline Lock Urinary Cath still in place: Yes Reason Cath still needed: skin wounds contaminated by urine Assessment/Plan Chief Complaint/Hosp Course -Bilateral superficial femoral occlusion status post left femoropopliteal bypass by Dr. Robles. Admit to ICU, continue to follow-up vascular surgery recommendation. -Sleep apnea, continue BiPAP overnight, Dr. Winkler is asked to see patient in pulmonology consultation. -COPD with long-term tobacco use -Diabetes mellitus -Hypertension -Chronic kidney disease stage III -Hypothyroidism, continue levothyroxine Problems: Subjective 24 Hr Interval Summary Free Text/Dictation Complain of pain in legs, at site of surgery Exam/Review of Systems Vital Signs Vitals Vital Signs Date Time Temp Pulse Resp B/P Pulse Ox O2 Delivery O2 Flow Rate FiO2 05/22/17 05:00 92 21 123/46 96 Nasal Cannula 05/22/17 04:02 2.0 05/22/17 04:00 98.5 05/20/17 21:41 21 Intake and Output 05/21/17 05/21/17 05/22/17 15:00 23:00 07:00 Intake Total 410 ml 670 ml 420 ml Output Total 920 ml 730 ml 415 ml Balance -510 ml -60 ml 5 ml Exam Constitutional: well developed Head: atraumatic, normocephalic Neck: supple Respiratory: clear to auscultation Cardiovascular: regular rate and rhythm Gastrointestinal: non-tender, soft Extremities: normal pulses Results Result Diagram: 05/21/17 0621 05/21/17 0621 Results 24 hrs Laboratory Tests Test 05/21/17 08:13 05/21/17 10:21 05/21/17 11:49 05/21/17 17:15 Bedside Glucose 224 H 174 145 Hemoglobin A1c 7.0 H Test 05/21/17 21:31 05/22/17 01:54 Bedside Glucose 227 H 178 Medications Medications Current Medications Dextrose/Sodium Chloride (D5-1/2ns) 1,000 ml @ 60 mls/hr [id number] IV Last administered on 05/22/17t 05:37; Admin Dose 60 MLS/HR; Start 05/20/17 at 06:30 Amitriptyline HCl (Elavil) 50 mg QHS PO Last administered on 05/21/17 21:33; Admin Dose 50 MG; Start 05/20/17 at 21:00 Atenolol (Tenormin) 25 mg DAILY PO Last administered on 05/21/17 08:23; Admin Dose 25 MG; Start 05/21/17 at 09:00 Atorvastatin Calcium (Lipitor) 40 mg QHS PO Last administered on 05/21/17 21: 33; Admin Dose 40 MG; Start 05/20/17 at 21:00 Clopidogrel Bisulfate (plaVIX) 75 mg DAILY PO Last administered on 05/21/17 08 :23; Admin Dose 75 MG; Start 05/21/17 at 09:00 Levothyroxine Sodium (Synthroid) 224 mcg DAILY@06 PO Last administered on 05:36; Admin Dose 224 MCG; Start 05/21/17 at 06:00 Lisinopril (Zestril) 2.5 mg DAILY PO Last administered on 05/21/17 08:24; Admin Dose 2.5 MG; Start 05/21/17 at 09:00 Tiotropium [place] (Spiriva) 1 inh DAILY INH Last administered on 05/21/17 11: 02; Admin Dose 1 INH; Start 05/21/17 at 09:00 Topiramate (Topamax) 200 mg BID PO Last administered on 05/21/17 21:34; Admin Dose 200 MG; Start 05/20/17 at 21:00 Zolpidem Tartrate (Ambien) 10 mg QHS PO Last administered on 05/21/17 21:33; Admin Dose 10 MG; Start 05/20/17 at 21:00 Linagliptin (Tradjenta) 5 mg DAILY PO Last administered on 05/21/17 08:24; Admin Dose 5 MG; Start 05/21/17 at 09:00 Metoclopramide HCl (Reglan) 10 mg Q6H PRN IV NAUSEA AND/OR VOMITING; Start at 15:30 Acetaminophen (Tylenol Liquid) 650 mg Q6H PRN PO PAIN LEVEL 1-3 OR FEVER; Start 05/20/17 at 15:30 Acetaminophen/ Hydrocodone Bitart ([place] (5/325)) 1 tab Q6H PRN PO PAIN LEVEL 4 -6 Last administered on 05/21/17 04:27; Admin Dose 1 TAB; Start 05/20/17 at 15: 30 Morphine Sulfate (morphine) 2 mg Q4H PRN IV PAIN LEVEL 7-10 Last administered on 05/21/17 08:02; Admin Dose 2 MG; Start 05/20/17 at 15:30 Pantoprazole (Protonix Tab) 40 mg DAILY@06 PO Last administered on 05/22/17 05 :36; Admin Dose 40 MG; Start 05/21/17 at 06:00 Miscellaneous Information 1 ea NOTE XX ; Start 05/20/17 at 15:30 Glucose (Glutose) 15 gm Q15M PRN PO DECREASED GLUCOSE; Start 05/20/17 at 15:30 Glucose (Glutose) 22.5 gm Q15M PRN PO DECREASED GLUCOSE; Start 05/20/17 at 15: 30 Glucagon (Glucagen) 1 mg Q15M PRN IM DECREASED GLUCOSE; Start 05/20/17 at 15:30 Glucose (Glutose) 15 gm Q15M PRN BUCCAL DECREASED GLUCOSE; Start 05/20/17 at 15 :30 Diagnostic Test (Pha) (Accu-Chek) 1 ea 02 XX Last administered on 05/22/17 01: 55; Admin Dose 1 EA; Start 05/22/17 at 02:00 Miscellaneous Information 1 ea NOTE XX ; Start 05/21/17 at 11:00 Glucose (Glutose) 15 gm Q15M PRN PO DECREASED GLUCOSE; Start 05/21/17 at 11:00 Glucose (Glutose) 22.5 gm Q15M PRN PO DECREASED GLUCOSE; Start 05/21/17 at 11: 00 Dextrose (D50w Syringe) 25 ml Q15M PRN IV DECREASED GLUCOSE; Start 05/21/17 at 11:00 Dextrose (D50w Syringe) 50 ml Q15M PRN IV DECREASED GLUCOSE; Start 05/21/17 at 11:00 Glucagon (Glucagen) 1 mg Q15M PRN IM DECREASED GLUCOSE; Start 05/21/17 at 11:00 Glucose (Glutose) 15 gm Q15M PRN BUCCAL DECREASED GLUCOSE; Start 05/21/17 at 11 :00 Insulin Glargine (Lantus) 20 unit DAILY@08 SC Last administered on 05/21/17 12 :39; Admin Dose 20 UNIT; Start 05/21/17 at 12:00 Hydromorphone HCl (Dilaudid) 1 mg Q4H PRN IV PAIN Last administered on 05:20; Admin Dose 1 MG; Start 05/21/17 at 12:00 Ergocalciferol (Drisdol) 50,000 unit Q7D PO Last administered on 05/21/17 16: 14; Admin Dose 50,000 UNIT; Start 05/21/17 at 09:00 Furosemide (Lasix) 20 mg DAILY PO ; Start 05/22/17 at 09:00 Ferrous Sulfate (Slow Fe) 142 mg DAILY PO ; Start 05/22/17 at 09:00 DANIELLA LUDWIG May 22, 2017 07:00
[2017-05-22 08:07] LABS: AADO2 Arterial 55.5 mmHg (7.0-24.0); Arterial Base Excess -4.7 mmol/L (-3.0-3); Arterial COHb 0.1 % (0.0-3.0); Arterial Fraction of Oxyhgb 97.1 % (93.0-99.0); Arterial HCO3 20.6 mmol/L (22.0-26.0); Arterial MetHb 0.3 % (0.0-1.5); Arterial Total Hemglobin 10.6 g/dl (12.0-18.0); MODE NASAL CANNULA
[2017-05-22] MEDS: GLIMEPIRIDE 4 MG TAB PO SCH (08:09)
[2017-05-22] MEDS: LISINOPRIL 5 MG TAB PO SCH (08:09)
[2017-05-22] MEDS: CLOPIDOGREL 75 MG TAB PO SCH (08:09)
[2017-05-22] MEDS: LINAGLIPTIN 5 MG TABLET PO SCH (08:10)
[2017-05-22] MEDS: TIOTROPIUM 18 MCG CAPSULE INHA DEV INH SCH (08:11)
[2017-05-22] MEDS: FUROSEMIDE 20 MG TAB PO SCH (08:12)
[2017-05-22] MEDS: TOPIRAMATE 100 MG TAB PO SCH ×2 (08:12→20:24)
[2017-05-22] MEDS: ATENOLOL 25 MG TAB PO SCH (08:12)
[2017-05-22] MEDS: FERROUS SULFATE (SR) 142 MG TAB PO SCH (08:15)
[2017-05-22] MEDS: INSULIN ASPART [NOVOLOG] 3 ML PEN SC SCH ×7 (08:19→21:00)
[2017-05-22] MEDS: INSULIN GLARGINE [LANtus] 3 ML PEN SC SCH (08:20)
--- NOTE | 2017-05-22 08:56 | RADRPT ---
PROCEDURE: Chest Radiograph. CLINICAL INDICATION: Pneumonia. CHF. TECHNIQUE: Single frontal chest radiograph. COMPARISON: Chest radiograph 04/15/2016 FINDINGS: The patient is rotated. Heart size is poorly evaluated. Atherosclerotic calcifications are present . The left lung is clear. There is apparent dense consolidation of the right lung base. There are m ild interstitial opacities which are stable compared to prior study and likely related to chronic kenisha ng changes. The bones are intact. IMPRESSION: 1. Apparent dense consolidation of the right lung base. This can be further evaluated with lateral view the chest. 2. Atherosclerotic vascular disease. 3. Chronic lung changes. RPTAT: KK .Grover Vigil MD, MD Date Time Electronically viewed and signed by .Grover Vigil MD, on 05/22/2017 08:55 .B/
[2017-05-22] MEDS ORDERED: ATENOLOL 25 MG TAB PO SCH (09:00)
[2017-05-22] MEDS ORDERED: LISINOPRIL 5 MG TAB PO SCH (09:00)
[2017-05-22] MEDS ORDERED: CLOPIDOGREL 75 MG TAB PO SCH (09:00)
[2017-05-22] MEDS ORDERED: INSULIN GLARGINE [LANtus] 3 ML PEN SC SCH (11:00)
[2017-05-22] MEDS: morphine 2 MG INJ IV PRN (12:36)
--- NOTE | 2017-05-22 13:37 | PN ---
Date/Time of Note Date/Time of Note DATE: 05/22/17 TIME: 13:35 Assessment/Plan Lines/Catheters IV Catheter Type (from Nrsg): Saline Lock [place] in Place (from Nrsg): Yes Assessment/Plan Chief Complaint/Hosp Course Status post left femoral-popliteal bypass grafting using reverse saphenous vein Patient with strong Doppler signals and palpable pulses in the foot will DC line Transferred patient to telemetry Ambulation Optimize vascular status DC planning Problems: Subjective 24 Hr Interval Summary Constitutional: improved Pain Control: mild Exam/Review of Systems Vital Signs Vitals Vital Signs Date Time Temp Pulse Resp B/P Pulse Ox O2 Delivery O2 Flow Rate FiO2 05/22/17 12:00 80 05/22/17 11:00 25 111/58 98 Nasal Cannula 4.0 05/22/17 08:00 98.3 05/20/17 21:41 21 Intake and Output 05/21/17 05/21/17 05/22/17 15:00 23:00 07:00 Intake Total 410 ml 670 ml 480 ml Output Total 920 ml 730 ml 470 ml Balance -510 ml -60 ml 10 ml Exam Neck: non-tender, supple Respiratory: clear to auscultation, normal air movement Cardiovascular: nl pulses, regular rate and rhythm Gastrointestinal: nl liver, spleen, non-tender, soft Results Result Diagram: 05/21/17 0621 05/21/17 0621 SIDRA SO MD May 22, 2017 13:37
--- NOTE | 2017-05-22 14:22 | CONS ---
Date/Time of Note Date/Time of Note DATE: 05/22/17 TIME: 14:21 Consult Date/Type/Reason Admit Date/Time May 20, 2017 at 05:33 Initial Consult Date 05/21/17 Type of Consultation: Pulmonary Subjective Patient remains stable this morning awake alert comfortable. Objective Vital Signs Date Time Temp Pulse Resp B/P Pulse Ox O2 Delivery O2 Flow Rate FiO2 05/22/17 13:00 85 19 116/55 96 Nasal Cannula 4.0 05/22/17 12:00 98.4 05/20/17 21:41 21 Intake and Output 05/21/17 05/21/17 05/22/17 15:00 23:00 07:00 Intake Total 410 ml 670 ml 480 ml Output Total 920 ml 730 ml 470 ml Balance -510 ml -60 ml 10 ml Exam GENERAL: Elderly lady comfortable at rest no acute distress VITAL SIGNS: per chart NECK: Supple. No JVD or lymphadenopathy. CARDIAC EXAM: S1, S2. No added sounds or murmurs. CHEST: clear bilaterally, No added sounds, rales or wheezes ABDOMEN: Soft, nontender. No guarding or rebound. EXTREMITIES: No cyanosis, clubbing or edema. NEUROLOGIC: Generalized weakness. No focal deficits. Results/Medications Result Diagram: 05/21/17 0621 05/21/17 0621 Results 24 hrs Laboratory Tests Test 05/21/17 17:15 05/21/17 21:31 05/22/17 01:54 05/22/17 07:00 Bedside Glucose 145 227 H 178 Blood Gas Specimen Source Blood arterial Arterial Blood Date Drawn 05/22/2017 7:20:58 AM Arterial Blood pH (Temp corrected) 7.343 L Arterial Blood pCO2 (Temp correct) 38.7 Arterial Blood pO2 (Temp corrected) 112.9 H Arterial Blood HCO3 20.6 L Arterial Blood Base Excess -4.7 L Arterial Blood Oxygen Saturation 97.5 Hector Test N/A Arterial Blood Gas Puncture Site Right Brachial Arterial Blood Carboxyhemoglobin 0.1 Arterial Blood Methemoglobin 0.3 Blood Gas A-a O2 Differential 55.5 H Oxyhemoglobin Percent 97.1 Total Hemoglobin 10.6 L Blood Gas Temperature 37.0 Blood Gas Modality NASAL CANNULA FiO2 30.0 Blood Gas Notified Whom JLD Blood Gas Notified Time 05/22/2017 8:07:32 AM Test 05/22/17 08:08 05/22/17 12:54 Bedside Glucose 282 H 230 H Medications Current Medications Amitriptyline HCl (Elavil) 50 mg QHS PO Last administered on 05/21/17 21:33; Admin Dose 50 MG; Start 05/20/17 at 21:00 Atenolol (Tenormin) 25 mg DAILY PO Last administered on 05/22/17 08:12; Admin Dose 25 MG; Start 05/21/17 at 09:00 Atorvastatin Calcium (Lipitor) 40 mg QHS PO Last administered on 05/21/17 21: 33; Admin Dose 40 MG; Start 05/20/17 at 21:00 Clopidogrel Bisulfate (plaVIX) 75 mg DAILY PO Last administered on 05/22/17 08 :09; Admin Dose 75 MG; Start 05/21/17 at 09:00 Levothyroxine Sodium (Synthroid) 224 mcg DAILY@06 PO Last administered on 05:36; Admin Dose 224 MCG; Start 05/21/17 at 06:00 Lisinopril (Zestril) 2.5 mg DAILY PO Last administered on 05/22/17 08:09; Admin Dose 2.5 MG; Start 05/21/17 at 09:00 Tiotropium [place] (Spiriva) 1 inh DAILY INH Last administered on 05/22/17 08: 11; Admin Dose 1 INH; Start 05/21/17 at 09:00 Topiramate (Topamax) 200 mg BID PO Last administered on 05/22/17 08:12; Admin Dose 200 MG; Start 05/20/17 at 21:00 Zolpidem Tartrate (Ambien) 10 mg QHS PO Last administered on 05/21/17 21:33; Admin Dose 10 MG; Start 05/20/17 at 21:00 Linagliptin (Tradjenta) 5 mg DAILY PO Last administered on 05/22/17 08:10; Admin Dose 5 MG; Start 05/21/17 at 09:00 Metoclopramide HCl (Reglan) 10 mg Q6H PRN IV NAUSEA AND/OR VOMITING; Start at 15:30 Acetaminophen (Tylenol Liquid) 650 mg Q6H PRN PO PAIN LEVEL 1-3 OR FEVER; Start 05/20/17 at 15:30 Acetaminophen/ Hydrocodone Bitart ([place] (5/325)) 1 tab Q6H PRN PO PAIN LEVEL 4 -6 Last administered on 05/21/17 04:27; Admin Dose 1 TAB; Start 05/20/17 at 15: 30 Morphine Sulfate (morphine) 2 mg Q4H PRN IV PAIN LEVEL 7-10 Last administered on 05/22/17 12:36; Admin Dose 2 MG; Start 05/20/17 at 15:30 Pantoprazole (Protonix Tab) 40 mg DAILY@06 PO Last administered on 05/22/17 05 :36; Admin Dose 40 MG; Start 05/21/17 at 06:00 Miscellaneous Information 1 ea NOTE XX ; Start 05/20/17 at 15:30 Glucose (Glutose) 15 gm Q15M PRN PO DECREASED GLUCOSE; Start 05/20/17 at 15:30 Glucose (Glutose) 22.5 gm Q15M PRN PO DECREASED GLUCOSE; Start 05/20/17 at 15: 30 Glucagon (Glucagen) 1 mg Q15M PRN IM DECREASED GLUCOSE; Start 05/20/17 at 15:30 Glucose (Glutose) 15 gm Q15M PRN BUCCAL DECREASED GLUCOSE; Start 05/20/17 at 15 :30 Diagnostic Test (Pha) (Accu-Chek) 1 ea 02 XX Last administered on 05/22/17 01: 55; Admin Dose 1 EA; Start 05/22/17 at 02:00 Miscellaneous Information 1 ea NOTE XX ; Start 05/21/17 at 11:00 Glucose (Glutose) 15 gm Q15M PRN PO DECREASED GLUCOSE; Start 05/21/17 at 11:00 Glucose (Glutose) 22.5 gm Q15M PRN PO DECREASED GLUCOSE; Start 05/21/17 at 11: 00 Dextrose (D50w Syringe) 25 ml Q15M PRN IV DECREASED GLUCOSE; Start 05/21/17 at 11:00 Dextrose (D50w Syringe) 50 ml Q15M PRN IV DECREASED GLUCOSE; Start 05/21/17 at 11:00 Glucagon (Glucagen) 1 mg Q15M PRN IM DECREASED GLUCOSE; Start 05/21/17 at 11:00 Glucose (Glutose) 15 gm Q15M PRN BUCCAL DECREASED GLUCOSE; Start 05/21/17 at 11 :00 Hydromorphone HCl (Dilaudid) 1 mg Q4H PRN IV PAIN Last administered on 09:33; Admin Dose 1 MG; Start 05/21/17 at 12:00 Ergocalciferol (Drisdol) 50,000 unit Q7D PO Last administered on 05/21/17 16: 14; Admin Dose 50,000 UNIT; Start 05/21/17 at 09:00 Furosemide (Lasix) 20 mg DAILY PO Last administered on 05/22/17 08:12; Admin Dose 20 MG; Start 05/22/17 at 09:00 Ferrous Sulfate (Slow Fe) 142 mg DAILY PO Last administered on 05/22/17 08:15 ; Admin Dose 142 MG; Start 05/22/17 at 09:00 Insulin Glargine (Lantus) 25 unit DAILY@08 SC ; Start 05/23/17 at 08:00 Diagnostic Test (Pha) (Accu-Chek) 1 ea 02 XX ; Start 05/23/17 at 02:00 Assessment/Plan Chief Complaint/Hosp Course Assessment 1. Hypoxemic and hypercapnic respiratory failure postoperatively likely secondary to alveolar hypoventilation 2. History of COPD 3. History of obstructive sleep apnea 4. Morbid obesity 5. Peripheral vascular disease status post femoropopliteal bypass 6. Diabetes mellitus Plan 1. Nocturnal noninvasive positive pressure ventilation 2. Outpatient sleep study follow-up 3. Surgical recommendations 4. Encourage out of bed if okay with surgery 5. Incentive spirometry and bronchodilators 6. DVT and GI prophylaxis Disposition Patient stable to be transferred to telemetry floor. Encourage out of bed if possible Problems: JERAD MORGAN MD, [facility] May 22, 2017 14:22
[2017-05-22] MEDS: ATORVASTATIN 40 MG TAB PO SCH (20:24)
[2017-05-22] MEDS: ZOLPIDEM 5 MG TAB PO SCH (20:25)
[2017-05-22] MEDS: AMITRIPTYLINE 50 MG TAB PO SCH (20:30)
[2017-05-23] MEDS: HYDROmorphONE 1 MG/ML SYG IV PRN ×6 (00:57→23:47)
[2017-05-23 02:00] VITALS: BP 112/55; RESP 18
[2017-05-23] MEDS ORDERED: ACCU-CHEK XX SCH (02:00)
[2017-05-23] MEDS: LEVOTHYROXINE 112 MCG TAB PO SCH (05:30)
[2017-05-23] MEDS: PANTOPRAZOLE (EC) 40 MG TAB PO SCH (05:30)
[2017-05-23 07:37] VITALS: BP 113/52; RESP 18
[2017-05-23] MEDS: FERROUS SULFATE (SR) 142 MG TAB PO SCH (08:16)
[2017-05-23] MEDS: TOPIRAMATE 100 MG TAB PO SCH ×2 (08:16→20:42)
[2017-05-23] MEDS: FUROSEMIDE 20 MG TAB PO SCH (08:17)
[2017-05-23] MEDS: CLOPIDOGREL 75 MG TAB PO SCH (08:17)
[2017-05-23] MEDS: GLIMEPIRIDE 4 MG TAB PO SCH (08:17)
[2017-05-23] MEDS: LISINOPRIL 5 MG TAB PO SCH (08:18)
[2017-05-23] MEDS: TIOTROPIUM 18 MCG CAPSULE INHA DEV INH SCH (08:18)
[2017-05-23] MEDS: ATENOLOL 25 MG TAB PO SCH (08:18)
[2017-05-23] MEDS: LINAGLIPTIN 5 MG TABLET PO SCH (08:18)
[2017-05-23] MEDS: INSULIN ASPART [NOVOLOG] 3 ML PEN SC SCH ×7 (08:21→20:50)
[2017-05-23] MEDS: INSULIN GLARGINE [LANtus] 3 ML PEN SC SCH (08:28)
--- NOTE | 2017-05-23 10:07 | PN ---
Date/Time of Note Date/Time of Note DATE: 05/23/17 TIME: 10:07 Assessment/Plan VTE Prophylaxis VTE Prophylaxis Intervention: other Lines/Catheters IV Catheter Type (from Nrs): Saline Lock Urinary Cath still in place: Yes Reason Cath still needed: skin wounds contaminated by urine Assessment/Plan Chief Complaint/Hosp Course -Bilateral superficial femoral occlusion status post left femoropopliteal bypass by Dr. Robles. Admit to ICU, continue to follow-up vascular surgery recommendation. -Sleep apnea, continue BiPAP overnight, Dr. Winkler is asked to see patient in pulmonology consultation. -COPD with long-term tobacco use -Diabetes mellitus -Hypertension -Chronic kidney disease stage III -Hypothyroidism, continue levothyroxine Problems: Subjective 24 Hr Interval Summary Free Text/Dictation Patient resting comfortably Exam/Review of Systems Vital Signs Vitals Vital Signs Date Time Temp Pulse Resp B/P Pulse Ox O2 Delivery O2 Flow Rate FiO2 05/23/17 07:37 98.7 77 18 113/52 92 05/22/17 21:00 Nasal Cannula 3.0 05/20/17 21:41 21 Intake and Output 05/22/17 05/22/17 05/23/17 15:00 23:00 07:00 Intake Total 1200 ml 420 ml 800 ml Output Total 375 ml 90 ml 1000 ml Balance 825 ml 330 ml -200 ml Exam Constitutional: well developed Head: atraumatic, normocephalic Neck: supple Respiratory: clear to auscultation Cardiovascular: regular rate and rhythm Gastrointestinal: non-tender, soft Extremities: normal pulses Results Result Diagram: 05/21/1762005/21/17 0621 Results 24 hrs Laboratory Tests Test 05/22/17 12:54 05/22/17 17:21 05/22/17 20:22 05/23/17 08:10 Bedside Glucose 230 H 186 168 212 Medications Medications Current Medications Amitriptyline HCl (Elavil) 50 mg QHS PO Last administered on 05/22/17 20:30; Admin Dose 50 MG; Start 05/20/17 at 21:00 Atenolol (Tenormin) 25 mg DAILY PO Last administered on 05/23/17 08:18; Admin Dose 25 MG; Start 05/21/17 at 09:00 Atorvastatin Calcium (Lipitor) 40 mg QHS PO Last administered on 05/22/17 20: 24; Admin Dose 40 MG; Start 05/20/17 at 21:00 Clopidogrel Bisulfate (plaVIX) 75 mg DAILY PO Last administered on 05/23/17 08 :17; Admin Dose 75 MG; Start 05/21/17 at 09:00 Levothyroxine Sodium (Synthroid) 224 mcg DAILY@06 PO Last administered on 05:30; Admin Dose 224 MCG; Start 05/21/17 at 06:00 Lisinopril (Zestril) 2.5 mg DAILY PO Last administered on 05/23/17 08:18; Admin Dose 2.5 MG; Start 05/21/17 at 09:00 Tiotropium [place] (Spiriva) 1 inh DAILY INH Last administered on 05/23/17 08: 18; Admin Dose 1 INH; Start 05/21/17 at 09:00 Topiramate (Topamax) 200 mg BID PO Last administered on 05/23/17 08:16; Admin Dose 200 MG; Start 05/20/17 at 21:00 Zolpidem Tartrate (Ambien) 10 mg QHS PO Last administered on 05/22/17 20:25; Admin Dose 10 MG; Start 05/20/17 at 21:00 Linagliptin (Tradjenta) 5 mg DAILY PO Last administered on 05/23/17 08:18; Admin Dose 5 MG; Start 05/21/17 at 09:00 Metoclopramide HCl (Reglan) 10 mg Q6H PRN IV NAUSEA AND/OR VOMITING; Start at 15:30 Acetaminophen (Tylenol Liquid) 650 mg Q6H PRN PO PAIN LEVEL 1-3 OR FEVER; Start 05/20/17 at 15:30 Acetaminophen/ Hydrocodone Bitart ([place] (5/325)) 1 tab Q6H PRN PO PAIN LEVEL 4 -6 Last administered on 05/21/17 04:27; Admin Dose 1 TAB; Start 05/20/17 at 15: 30 Morphine Sulfate (morphine) 2 mg Q4H PRN IV PAIN LEVEL 7-10 Last administered on 05/22/17 12:36; Admin Dose 2 MG; Start 05/20/17 at 15:30 Pantoprazole (Protonix Tab) 40 mg DAILY@06 PO Last administered on 05/23/17 05 :30; Admin Dose 40 MG; Start 05/21/17 at 06:00 Miscellaneous Information 1 ea NOTE XX ; Start 05/20/17 at 15:30 Glucose (Glutose) 15 gm Q15M PRN PO DECREASED GLUCOSE; Start 05/20/17 at 15:30 Glucose (Glutose) 22.5 gm Q15M PRN PO DECREASED GLUCOSE; Start 05/20/17 at 15: 30 Glucagon (Glucagen) 1 mg Q15M PRN IM DECREASED GLUCOSE; Start 05/20/17 at 15:30 Glucose (Glutose) 15 gm Q15M PRN BUCCAL DECREASED GLUCOSE; Start 05/20/17 at 15 :30 Diagnostic Test (Pha) (Accu-Chek) 1 ea 02 XX Last administered on 05/22/17 01: 55; Admin Dose 1 EA; Start 05/22/17 at 02:00 Miscellaneous Information 1 ea NOTE XX ; Start 05/21/17 at 11:00 Glucose (Glutose) 15 gm Q15M PRN PO DECREASED GLUCOSE; Start 05/21/17 at 11:00 Glucose (Glutose) 22.5 gm Q15M PRN PO DECREASED GLUCOSE; Start 05/21/17 at 11: 00 Dextrose (D50w Syringe) 25 ml Q15M PRN IV DECREASED GLUCOSE; Start 05/21/17 at 11:00 Dextrose (D50w Syringe) 50 ml Q15M PRN IV DECREASED GLUCOSE; Start 05/21/17 at 11:00 Glucagon (Glucagen) 1 mg Q15M PRN IM DECREASED GLUCOSE; Start 05/21/17 at 11:00 Glucose (Glutose) 15 gm Q15M PRN BUCCAL DECREASED GLUCOSE; Start 05/21/17 at 11 :00 Hydromorphone HCl (Dilaudid) 1 mg Q4H PRN IV PAIN Last administered on 05:30; Admin Dose 1 MG; Start 05/21/17 at 12:00 Ergocalciferol (Drisdol) 50,000 unit Q7D PO Last administered on 05/21/17 16: 14; Admin Dose 50,000 UNIT; Start 05/21/17 at 09:00 Furosemide (Lasix) 20 mg DAILY PO Last administered on 05/23/17 08:17; Admin Dose 20 MG; Start 05/22/17 at 09:00 Ferrous Sulfate (Slow Fe) 142 mg DAILY PO Last administered on 05/23/17 08:16 ; Admin Dose 142 MG; Start 05/22/17 at 09:00 Insulin Glargine (Lantus) 25 unit DAILY@08 SC Last administered on 05/23/17 08 :28; Admin Dose 25 UNIT; Start 05/23/17 at 08:00 Diagnostic Test (Pha) (Accu-Chek) 1 XX ; Start 05/23/17 at 02:00 DANIELLA LUDWIG May 23, 2017 10:07
[2017-05-23 14:14] VITALS: BP 101/50; RESP 18
[2017-05-23 19:33] VITALS: BP 118/56; RESP 18
--- NOTE | 2017-05-23 19:43 | PN ---
Date/Time of Note Date/Time of Note DATE: 05/23/17 TIME: 19:43 Assessment/Plan Lines/Catheters IV Catheter Type (from Nrsg): Saline Lock [place] in Place (from Nrsg): Yes Assessment/Plan Chief Complaint/Hosp Course Status post left femoral-popliteal bypass grafting using reverse saphenous vein Patient with strong Doppler signals and palpable pulses in the foot will DC line Transferred patient to telemetry Ambulation Optimize vascular status DC planning Problems: Subjective 24 Hr Interval Summary Constitutional: improved Pain Control: mild Exam/Review of Systems Vital Signs Vitals Vital Signs Date Time Temp Pulse Resp B/P Pulse Ox O2 Delivery O2 Flow Rate FiO2 05/23/17 19:33 98.5 73 18 118/56 93 05/22/17 21:00 Nasal Cannula 3.0 05/20/17 21:41 21 Intake and Output 05/22/17 05/22/17 05/23/17 15:00 23:00 07:00 Intake Total 1200 ml 420 ml 800 ml Output Total 375 ml 90 ml 1000 ml Balance 825 ml 330 ml -200 ml Exam ENMT: mucosa pink and moist, nl external ears & nose, nl lips & teeth, nl nasal mucosa & septum Neck: non-tender, supple Respiratory: clear to auscultation, normal air movement Cardiovascular: nl pulses, regular rate and rhythm Gastrointestinal: nl liver, spleen, non-tender, soft Results Result Diagram: 05/21/1762005/21/17620 SIDRA SO MD May 23, 2017 19:43
[2017-05-23] MEDS: ATORVASTATIN 40 MG TAB PO SCH (20:42)
[2017-05-23] MEDS: ZOLPIDEM 5 MG TAB PO SCH (20:42)
[2017-05-23] MEDS: HYDROCODONE/APAP (5/325) TAB PO PRN (20:42)
[2017-05-23] MEDS: AMITRIPTYLINE 50 MG TAB PO SCH (20:42)
[2017-05-24 01:53] VITALS: BP 113/52; RESP 16
[2017-05-24] MEDS: ACCU-CHEK XX SCH ×2 (02:00)
[2017-05-24] MEDS: HYDROmorphONE 1 MG/ML SYG IV PRN ×2 (03:29→07:27)
[2017-05-24] MEDS: HYDROCODONE/APAP (5/325) TAB PO PRN ×4 (03:29→22:21)
[2017-05-24 06:06] LABS: BASOPHILS % 0.4 % (0.0-2.0); EOSINOPHILS # 0.2 10^3/ul (0.0-0.5); EOSINOPHILS % 1.4 % (0.0-7.0); HEMATOCRIT 29.8 % (37.0-47.0); HEMOGLOBIN 9.5 g/dl (12.0-16.0); LYMPHOCYTES # 2.1 10^3/ul (0.8-2.9); LYMPHOCYTES % 18.8 % (15.0-51.0); MEAN CORPUSCULAR HEMOGLOBIN 29.8 pg (29.0-33.0); MEAN CORPUSCULAR HGB CONC 31.9 g/dl (32.0-37.0); MEAN CORPUSCULAR VOLUME 93.4 fl (82.0-101.0); MEAN PLATELET VOLUME 10.6 fl (7.4-10.4); MONOCYTE # 0.9 10^3/ul (0.3-0.9); NEUTROPHIL # 7.8 10^3/ul (1.6-7.5); NEUTROPHILS % 70.7 % (39.0-77.0); PLATELET COUNT 283 10^3/UL (140-415); RED BLOOD COUNT 3.19 10^6/ul (4.20-5.40); RED CELL DISTRIBUTION WIDTH 12.6 % (11.5-14.5); WHITE BLOOD COUNT 11.1 10^3/ul (4.8-10.8)
[2017-05-24 06:28] LABS: CALCIUM 9.3 mg/dl (8.4-10.2); CREATININE 1.28 mg/dl (0.44-1.00); POTASSIUM 4.4 mmol/L (3.5-5.1)
[2017-05-24] MEDS: LEVOTHYROXINE 112 MCG TAB PO SCH (06:40)
[2017-05-24] MEDS: PANTOPRAZOLE (EC) 40 MG TAB PO SCH (06:40)
[2017-05-24 07:34] VITALS: BP 115/57; RESP 18
[2017-05-24] MEDS: INSULIN ASPART [NOVOLOG] 3 ML PEN SC SCH ×7 (08:26→21:20)
[2017-05-24] MEDS: TIOTROPIUM 18 MCG CAPSULE INHA DEV INH SCH (08:33)
[2017-05-24] MEDS: GLIMEPIRIDE 4 MG TAB PO SCH (08:33)
[2017-05-24] MEDS: FERROUS SULFATE (SR) 142 MG TAB PO SCH (08:33)
[2017-05-24] MEDS: CLOPIDOGREL 75 MG TAB PO SCH (08:34)
[2017-05-24] MEDS: TOPIRAMATE 100 MG TAB PO SCH ×2 (08:34→21:15)
[2017-05-24] MEDS: LINAGLIPTIN 5 MG TABLET PO SCH (08:34)
[2017-05-24] MEDS: LISINOPRIL 5 MG TAB PO SCH (08:37)
[2017-05-24] MEDS: ATENOLOL 25 MG TAB PO SCH (08:38)
[2017-05-24] MEDS: FUROSEMIDE 20 MG TAB PO SCH (08:44)
[2017-05-24] MEDS: INSULIN GLARGINE [LANtus] 3 ML PEN SC SCH (08:46)
--- NOTE | 2017-05-24 11:28 | PN ---
Date/Time of Note Date/Time of Note DATE: 05/24/17 TIME: 11:27 Assessment/Plan VTE Prophylaxis VTE Prophylaxis Intervention: other Lines/Catheters IV Catheter Type (from Nrs): Saline Lock Urinary Cath still in place: Yes Reason Cath still needed: skin wounds contaminated by urine Assessment/Plan Chief Complaint/Hosp Course -Bilateral superficial femoral occlusion status post left femoropopliteal bypass by Dr. Robles. Admit to ICU, continue to follow-up vascular surgery recommendation. -Sleep apnea, continue BiPAP overnight, Dr. Winkler is asked to see patient in pulmonology consultation. -COPD with long-term tobacco use -Diabetes mellitus -Hypertension -Chronic kidney disease stage III -Hypothyroidism, continue levothyroxine Problems: Subjective 24 Hr Interval Summary Free Text/Dictation Patient sitting in chair, doing better Exam/Review of Systems Vital Signs Vitals Vital Signs Date Time Temp Pulse Resp B/P Pulse Ox O2 Delivery O2 Flow Rate FiO2 05/24/17 07:34 97.6 68 18 115/57 93 05/22/17 21:00 Nasal Cannula 3.0 05/20/17 21:41 21 Intake and Output 05/23/17 05/23/17 05/24/17 15:00 23:00 07:00 Intake Total 1580 ml 800 ml Output Total 1100 ml 1840 ml Balance 480 ml -1040 ml Exam Constitutional: well developed Head: atraumatic, normocephalic Neck: supple Respiratory: clear to auscultation Cardiovascular: regular rate and rhythm Gastrointestinal: non-tender, soft Extremities: normal pulses Results Result Diagram: 05/24/17 0510 05/24/17 0510 Results 24 hrs Laboratory Tests Test 05/23/17 12:10 05/23/17 17:15 05/23/17 20:47 05/24/17 01:59 Bedside Glucose 176 189 191 160 Test 05/24/17 05:10 05/24/17 08:20 White Blood Count 11.1 #H Red Blood Count 3.19 L Hemoglobin 9.5 L Hematocrit 29.8 L Mean Corpuscular Volume 93.4 Mean Corpuscular Hemoglobin 29.8 Mean Corpuscular Hemoglobin Concent 31.9 L Red Cell Distribution Width 12.6 Platelet Count 283 Mean Platelet Volume 10.6 H Neutrophils % 70.7 Lymphocytes % 18.8 Monocytes % 8.0 Eosinophils % 1.4 Basophils % 0.4 Nucleated Red Blood Cells % 0.0 Neutrophils # 7.8 H Lymphocytes # 2.1 Monocytes # 0.9 Eosinophils # 0.2 Basophils # 0.0 Nucleated Red Blood Cells # 0.0 Sodium Level 133 L Potassium Level 4.4 Chloride Level 95 L Carbon Dioxide Level 23 Anion Gap 19 H Blood Urea Nitrogen 31 H Creatinine 1.28 H Glucose Level 160 Calcium Level 9.3 Bedside Glucose 173 Medications Medications Current Medications Amitriptyline HCl (Elavil) 50 mg QHS PO Last administered on 05/23/17 20:42; Admin Dose 50 MG; Start 05/20/17 at 21:00 Atenolol (Tenormin) 25 mg DAILY PO Last administered on 05/24/17 08:38; Admin Dose 25 MG; Start 05/21/17 at 09:00 Atorvastatin Calcium (Lipitor) 40 mg QHS PO Last administered on 05/23/17 20: 42; Admin Dose 40 MG; Start 05/20/17 at 21:00 Clopidogrel Bisulfate (plaVIX) 75 mg DAILY PO Last administered on 05/24/17 08 :34; Admin Dose 75 MG; Start 05/21/17 at 09:00 Levothyroxine Sodium (Synthroid) 224 mcg DAILY@06 PO Last administered on 06:40; Admin Dose 224 MCG; Start 05/21/17 at 06:00 Lisinopril (Zestril) 2.5 mg DAILY PO Last administered on 05/24/17 08:37; Admin Dose 2.5 MG; Start 05/21/17 at 09:00 Tiotropium [place] (Spiriva) 1 inh DAILY INH Last administered on 05/24/17 08: 33; Admin Dose 1 INH; Start 05/21/17 at 09:00 Topiramate (Topamax) 200 mg BID PO Last administered on 05/24/17 08:34; Admin Dose 200 MG; Start 05/20/17 at 21:00 Zolpidem Tartrate (Ambien) 10 mg QHS PO Last administered on 05/23/17 20:42; Admin Dose 10 MG; Start 05/20/17 at 21:00 Linagliptin (Tradjenta) 5 mg DAILY PO Last administered on 05/24/17 08:34; Admin Dose 5 MG; Start 05/21/17 at 09:00 Metoclopramide HCl (Reglan) 10 mg Q6H PRN IV NAUSEA AND/OR VOMITING; Start at 15:30 Acetaminophen (Tylenol Liquid) 650 mg Q6H PRN PO PAIN LEVEL 1-3 OR FEVER; Start 05/20/17 at 15:30 Acetaminophen/ Hydrocodone Bitart ([place] (5/325)) 1 tab Q6H PRN PO PAIN LEVEL 4 -6 Last administered on 05/24/17 11:03; Admin Dose 1 TAB; Start 05/20/17 at 15: 30 Morphine Sulfate (morphine) 2 mg Q4H PRN IV PAIN LEVEL 7-10 Last administered on 05/22/17 12:36; Admin Dose 2 MG; Start 05/20/17 at 15:30 Pantoprazole (Protonix Tab) 40 mg DAILY@06 PO Last administered on 05/24/17 06 :40; Admin Dose 40 MG; Start 05/21/17 at 06:00 Miscellaneous Information 1 ea NOTE XX ; Start 05/20/17 at 15:30 Glucose (Glutose) 15 gm Q15M PRN PO DECREASED GLUCOSE; Start 05/20/17 at 15:30 Glucose (Glutose) 22.5 gm Q15M PRN PO DECREASED GLUCOSE; Start 05/20/17 at 15: 30 Glucagon (Glucagen) 1 mg Q15M PRN IM DECREASED GLUCOSE; Start 05/20/17 at 15:30 Glucose (Glutose) 15 gm Q15M PRN BUCCAL DECREASED GLUCOSE; Start 05/20/17 at 15 :30 Diagnostic Test (Pha) (Accu-Chek) 1 ea 02 XX Last administered on 05/22/17 01: 55; Admin Dose 1 EA; Start 05/22/17 at 02:00 Miscellaneous Information 1 ea NOTE XX ; Start 05/21/17 at 11:00 Glucose (Glutose) 15 gm Q15M PRN PO DECREASED GLUCOSE; Start 05/21/17 at 11:00 Glucose (Glutose) 22.5 gm Q15M PRN PO DECREASED GLUCOSE; Start 05/21/17 at 11: 00 Dextrose (D50w Syringe) 25 ml Q15M PRN IV DECREASED GLUCOSE; Start 05/21/17 at 11:00 Dextrose (D50w Syringe) 50 ml Q15M PRN IV DECREASED GLUCOSE; Start 05/21/17 at 11:00 Glucagon (Glucagen) 1 mg Q15M PRN IM DECREASED GLUCOSE; Start 05/21/17 at 11:00 Glucose (Glutose) 15 gm Q15M PRN BUCCAL DECREASED GLUCOSE; Start 05/21/17 at 11 :00 Hydromorphone HCl (Dilaudid) 1 mg Q4H PRN IV PAIN Last administered on 07:27; Admin Dose 1 MG; Start 05/21/17 at 12:00 Ergocalciferol (Drisdol) 50,000 unit Q7D PO Last administered on 05/21/17 16: 14; Admin Dose 50,000 UNIT; Start 05/21/17 at 09:00 Furosemide (Lasix) 20 mg DAILY PO Last administered on 05/24/17 08:44; Admin Dose 20 MG; Start 05/22/17 at 09:00 Ferrous Sulfate (Slow Fe) 142 mg DAILY PO Last administered on 05/24/17 08:33 ; Admin Dose 142 MG; Start 05/22/17 at 09:00 Insulin Glargine (Lantus) 25 unit DAILY@08 SC Last administered on 05/24/17 08 :46; Admin Dose 25 UNIT; Start 05/23/17 at 08:00 Diagnostic Test (Pha) (Accu-Chek) 1 XX ; Start 05/23/17 at 02:00 DANIELLA LUDWIG May 24, 2017 11:28
[2017-05-24] MEDS ORDERED: BISACODYL (EC) 5 MG TAB PO ONE (11:30)
[2017-05-24 14:32] VITALS: BP 127/59; RESP 18
--- NOTE | 2017-05-24 14:46 | PN ---
Date/Time of Note Date/Time of Note DATE: 05/24/17 TIME: 14:45 Assessment/Plan Lines/Catheters IV Catheter Type (from Nrsg): Saline Lock [place] in Place (from Nrsg): Yes Assessment/Plan Chief Complaint/Hosp Course Status post left femoral-popliteal bypass grafting using reverse saphenous vein Patient with strong Doppler signals and palpable pulses in the foot will DC line Transferred patient to telemetry Ambulation Optimize vascular status DC planning Problems: Subjective 24 Hr Interval Summary Constitutional: improved Pain Control: mild Exam/Review of Systems Vital Signs Vitals Vital Signs Date Time Temp Pulse Resp B/P Pulse Ox O2 Delivery O2 Flow Rate FiO2 05/24/17 14:32 98.5 66 18 127/59 96 05/22/17 21:00 Nasal Cannula 3.0 05/20/17 21:41 21 Intake and Output 05/23/17 05/23/17 05/24/17 15:00 23:00 07:00 Intake Total 1580 ml 800 ml Output Total 1100 ml 1840 ml Balance 480 ml -1040 ml Exam ENMT: mucosa pink and moist, nl external ears & nose, nl lips & teeth, nl nasal mucosa & septum Neck: non-tender, supple Respiratory: clear to auscultation, normal air movement Cardiovascular: nl pulses, regular rate and rhythm Gastrointestinal: nl liver, spleen, non-tender, soft Extremities: normal pulses Results Result Diagram: 05/24/17 0510 05/24/17 0510 SIDRA SO MD May 24, 2017 14:46
[2017-05-24 19:36] VITALS: BP 130/62; RESP 18
[2017-05-24] MEDS: ATORVASTATIN 40 MG TAB PO SCH (21:14)
[2017-05-24] MEDS: AMITRIPTYLINE 50 MG TAB PO SCH (21:14)
[2017-05-24] MEDS: ZOLPIDEM 5 MG TAB PO SCH (21:15)
[2017-05-25] MEDS: HYDROmorphONE 1 MG/ML SYG IV PRN (01:31)
[2017-05-25] MEDS: ACCU-CHEK XX SCH ×2 (02:00)
[2017-05-25] MEDS: PANTOPRAZOLE (EC) 40 MG TAB PO SCH (05:31)
[2017-05-25] MEDS: LEVOTHYROXINE 112 MCG TAB PO SCH (05:31)
[2017-05-25 07:32] VITALS: BP 125/56; RESP 18
[2017-05-25] MEDS: HYDROCODONE/APAP (5/325) TAB PO PRN ×2 (08:18→13:15)
[2017-05-25] MEDS: TIOTROPIUM 18 MCG CAPSULE INHA DEV INH SCH (08:20)
[2017-05-25] MEDS: GLIMEPIRIDE 4 MG TAB PO SCH (08:20)
[2017-05-25] MEDS: LISINOPRIL 5 MG TAB PO SCH (08:21)
[2017-05-25] MEDS: CLOPIDOGREL 75 MG TAB PO SCH (08:21)
[2017-05-25] MEDS: LINAGLIPTIN 5 MG TABLET PO SCH (08:21)
[2017-05-25] MEDS: ATENOLOL 25 MG TAB PO SCH (08:21)
[2017-05-25] MEDS: TOPIRAMATE 100 MG TAB PO SCH (08:22)
[2017-05-25] MEDS: FUROSEMIDE 20 MG TAB PO SCH (08:22)
[2017-05-25] MEDS: FERROUS SULFATE (SR) 142 MG TAB PO SCH (08:22)
[2017-05-25] MEDS: INSULIN ASPART [NOVOLOG] 3 ML PEN SC SCH ×4 (08:25→12:34)
[2017-05-25] MEDS: INSULIN GLARGINE [LANtus] 3 ML PEN SC SCH (08:32)
--- NOTE | 2017-05-25 10:19 | PN ---
Date/Time of Note Date/Time of Note DATE: 05/25/17 TIME: 10:19 Assessment/Plan Lines/Catheters IV Catheter Type (from Nrsg): Saline Lock [place] in Place (from Nrsg): Yes Assessment/Plan Chief Complaint/Hosp Course Status post left femoral-popliteal bypass grafting using reverse saphenous vein Patient with strong Doppler signals and palpable pulses in the foot will DC line Transferred patient to telemetry Ambulation Optimize vascular status DC planning Problems: Subjective 24 Hr Interval Summary Constitutional: improved Pain Control: mild Exam/Review of Systems Vital Signs Vitals Vital Signs Date Time Temp Pulse Resp B/P Pulse Ox O2 Delivery O2 Flow Rate FiO2 05/25/17 07:32 97.8 64 18 125/56 96 05/22/17 21:00 Nasal Cannula 3.0 Intake and Output 05/24/17 05/24/17 05/25/17 15:00 23:00 07:00 Intake Total 1920 ml 900 ml Output Total 2300 ml 2700 ml Balance -380 ml -1800 ml Exam ENMT: mucosa pink and moist, nl external ears & nose, nl lips & teeth, nl nasal mucosa & septum Neck: non-tender, supple Respiratory: clear to auscultation, normal air movement Cardiovascular: nl pulses, regular rate and rhythm Gastrointestinal: nl liver, spleen, non-tender, soft Results Result Diagram: 05/24/17 0510 05/24/17 0510 SIDRA SO MD May 25, 2017 10:19
[2017-05-25 13:55] VITALS: BP 124/57; RESP 18
[2017-05-25] MEDS ORDERED: morphine 4 MG/ML VIAL IV PRN (14:00)
[2017-05-25 17:03] VITALS: BP 125/64; PULSE 68; RESP 18
[2017-05-26] MEDS ORDERED: INSULIN GLARGINE [LANtus] 3 ML PEN SC SCH (08:00)
== END 2017-05-25 17:30 | disposition home or self-care (01) | DRG 253 ==
LOC: REC 05:33 → EDSTATUS 07:30 → ICU 18:39 → MS2 05-22 17:07
PROVIDERS: ADMIT Thoracic Surgery (Cardiothoracic Vascular Surgery); ATTEND Thoracic Surgery (Cardiothoracic Vascular Surgery)
PROC: 06BQ4ZZ Excision of Left Saphenous Vein, Percutaneous Endoscopic Approach (ICD-10-PCS; 2017-05-20)
PROC: 04CL0ZZ Extirpation of Matter from Left Femoral Artery, Open Approach (ICD-10-PCS; 2017-05-20)
PROC: 04CN0ZZ Extirpation of Matter from Left Popliteal Artery, Open Approach (ICD-10-PCS; 2017-05-20)
PROC: 041L09L Bypass Left Femoral Artery to Popliteal Artery with Autologous Venous Tissue, Open Approach (ICD-10-PCS; principal; 2017-05-20 07:30)
DX: I77.89 Other specified disorders of arteries and arterioles (principal); E66.2 Morbid (severe) obesity with alveolar hypoventilation; E11.22 Type 2 diabetes mellitus with diabetic chronic kidney disease; E11.42 Type 2 diabetes mellitus with diabetic polyneuropathy; I73.9 Peripheral vascular disease, unspecified; N18.3 Chronic kidney disease, stage 3 (moderate); J44.9 Chronic obstructive pulmonary disease, unspecified; I25.10 Atherosclerotic heart disease of native coronary artery without angina pectoris; I12.9 Hypertensive chronic kidney disease with stage 1 through stage 4 chronic kidney disease, or unspecified chronic kidney disease; E78.5 Hyperlipidemia, unspecified; E03.9 Hypothyroidism, unspecified; F41.9 Anxiety disorder, unspecified; F17.210 Nicotine dependence, cigarettes, uncomplicated; G47.33 Obstructive sleep apnea (adult) (pediatric); M19.90 Unspecified osteoarthritis, unspecified site; Z68.37 Body mass index [BMI] 37.0-37.9, adult; Z95.5 Presence of coronary angioplasty implant and graft; Z79.4 Long term (current) use of insulin
CPT/HCPCS: 36600; 71010; 80048; 80051; 82803; 82947; 82962; 83036; 85025; 86850; 86900; 86901; 87081; 87086; J0131; J0360; J0690; J1170; J1644; J1815; J2250; J2270; J2370; J2710; J2765; J3010; J3370; J7042

== ENCOUNTER 2017-08-11 13:44 | Day surgery (SDC) | payer OTHER ==
[2017-08-11] VITALS (14 sets, daily range): BP systolic 69–132; BP diastolic 34–61; PULSE 66–73; RESP 13–19; Ht 160 cm; Wt 92.0 kg
[~2017-08-11] VITALS: Ht 160 cm; Wt 92.0 kg
[~2017-08-11 13:44] MED LIST changes: +FURO20TA3 PO
[2017-08-11] MEDS ORDERED: AMIT50TA3 PO (14:39)
[2017-08-11] MEDS ORDERED: SITA50TA2 PO (14:40)
[2017-08-11] MEDS ORDERED: FER325 PO (14:43)
[2017-08-11] MEDS ORDERED: DULA1.5P SQ (14:46)
[2017-08-11] MEDS ORDERED: INSU300I SQ ×2 (14:46→14:47)
[2017-08-11] MEDS ORDERED: MIDAZOLAM 1 MG/ML 2 ML INJ ONE (16:02)
[2017-08-11] MEDS ORDERED: FENTAnyl 50 MCG/ML VIAL ONE (16:02)
[2017-08-11] MEDS ORDERED: PROPOFOL 20 ML ONE (16:02)
[2017-08-11] MEDS ORDERED: FENTAnyl 50 MCG/ML VIAL IV PRN ×3 (16:30)
[2017-08-11] MEDS ORDERED: hydrALAzine 20 MG INJ IV PRN (16:30)
[2017-08-11] MEDS ORDERED: HYDROmorphONE (0.2 MG/ML) 10ML SYG IV PRN ×3 (16:30)
[2017-08-11] MEDS ORDERED: MEPERIDINE 25 MG INJ IV PRN (16:30)
[2017-08-11] MEDS ORDERED: LABETALOL HCL 20MG INJ IV PRN (16:30)
[2017-08-11] MEDS ORDERED: METOCLOPRAMIDE 10 MG INJ IV PRN (16:30)
[2017-08-11] MEDS ORDERED: DIPHENHYDRAMINE 50 MG INJ IV PRN (16:30)
[2017-08-11] MEDS ORDERED: morphine (1 MG/ML) 10ML SYRINGE IV PRN ×3 (16:30)
[2017-08-11] MEDS ORDERED: EPHEDrine SULFATE 50 MG/5 ML SYG IV PRN (16:30)
[2017-08-11] MEDS ORDERED: CEFAZOLIN 1 GM INJ ONE (16:39)
[2017-08-11] MEDS ORDERED: PHENYLephrine (100 MCG/ML) 5ML SYG ONE (16:54)
[2017-08-11] MEDS ORDERED: DEXAMETHASONE 4 MG/ML 1 ML INJ ONE (16:59)
[2017-08-11] MEDS ORDERED: METOCLOPRAMIDE 10 MG INJ ONE (16:59)
[2017-08-11] MEDS ORDERED: ALBUMIN HUMAN 5% 250 ML ONE (17:37)
--- NOTE | 2017-08-11 17:38 | OPR ---
Date/Time of Note Date/Time of Note DATE: 08/11/17 TIME: 17:36 Operative Report Procedure Date: Aug 11, 2017 Preoperative Diagnosis Groin wound infection Postoperative Diagnosis Same Operation/Procedure Performed Left groin wound debridement Surgeon see signature line Standard Machine Stitcher None Anesthesia Type: general Estimated Blood Loss: minimal Transfusion none Specimen None Grafts/Implants none Tubes/Drains None Complications none Indications Dictated Procedure Description Patient was taken the operating after induction of general anesthesia prepped and draped in usual sterile fashion timeout was called antibiotics was given I made a 1 cm incision left groin around the wound dehiscence site the wound was debrided sharply using Metzenbaum scissors appear to be some granulation tissue which was left intact no evidence of any bony involvement was noted was irrigated using copious amount of antibiotic solution the left leg dehiscence which was 1 x 1 cm was also debrided in the same fashion wound cultures were sent appropriate dressings applied patient tolerated procedure well SIDRA SO MD Aug 11, 2017 17:38
[2017-08-11] MEDS ORDERED: ALBUMIN HUMAN 25% 100 ML IV SCH (18:00)
[2017-08-11] MEDS ORDERED: ALBUMIN HUMAN 5% 250 ML IV ONE (18:00)
--- NOTE | 2017-08-13 18:29 | RADRPT ---
Vent Rate: 66 bpm RR Interval: 0 msec NH Interval: 160 msec QRS Duration: 110 msec QT Interval: 416 msec QTC Interval: 436 msec P-R-T [place]: 49 - 69 - 63 degrees Normal sinus rhythm with sinus arrhythmia Normal ECG Electronically Signed By: López Cheema [id number]
== END 2017-08-11 18:53 | disposition home or self-care (01) ==
LOC: SDS 13:44
PROVIDERS: ATTEND Thoracic Surgery (Cardiothoracic Vascular Surgery)
DX: T81.30XA Disruption of wound, unspecified, initial encounter (principal); L08.89 Other specified local infections of the skin and subcutaneous tissue; I10 Essential (primary) hypertension; E11.9 Type 2 diabetes mellitus without complications; G47.30 Sleep apnea, unspecified; I25.10 Atherosclerotic heart disease of native coronary artery without angina pectoris; E11.51 Type 2 diabetes mellitus with diabetic peripheral angiopathy without gangrene; E66.9 Obesity, unspecified; Z68.35 Body mass index [BMI] 35.0-35.9, adult
CPT/HCPCS: 11042; 82962; 87070; 87075; 87102; 87116; 93005; J0690; J1100; J2250; J2370; J2765; J3010; P9045; Z7512; Z7610; P9047

== ENCOUNTER 2019-03-07 08:36 | Day surgery (SDC) | payer OTHER ==
[~2019-03-07] VITALS: Ht 160 cm; Wt 96.8 kg
[2019-03-07] VITALS (21 sets, daily range): BP systolic 114–206; BP diastolic 51–99; PULSE 60–72; RESP 12–26; Ht 160 cm; Wt 96.8 kg
[~2019-03-07 08:36] MED LIST changes: +ACET1TAB40 PO; +AMIT100T2 PO; -AMIT50TA3 PO; +ASPI81TA52 PO; +ATOR-2 PO; -ATOR40TA68 PO; -CYAN100018 PO; +CYAN500T46 PO; +DULA1.5P SQ; +ERGO500013 PO; -ERGO500037 PO; +FER325 PO; -FERR142T5 PO; -FURO20TA3 PO; +FURO40TA4 PO; +GLUC-181 PO; +LEVO200T45 PO; -LEVO200T6 PO; +MULT-860 PO; -MULT1TAB6 PO; +OMEG1CAP17 PO; -OMEG1CAP2 PO; -ONDA4TAB8 PO; -SITA100T8 PO; +SITA50TA2 PO; -TIOT18CA INHALATION; +TOPI100T11 PO; -TOPI200T8 PO; -TYL2 PO; +UBID100C24 PO; -UBID100T7 PO; +VARE1TAB20 PO; -ZOLP10TA5 PO; +ZOLP5TAB7 PO
[2019-03-07] MEDS ORDERED: FENTAnyl 50 MCG/ML VIAL ONE ×3 (10:16→11:46)
[2019-03-07] MEDS ORDERED: IODIXANOL LOCM 100 ML BTL ONE ×3 (10:16→12:23)
[2019-03-07] MEDS ORDERED: MIDAZOLAM 1 MG/ML 2 ML INJ ONE ×2 (10:16→12:08)
[2019-03-07] MEDS ORDERED: LIDOCAINE 1% (MDV) 20 ML INJ ONE (10:16)
[2019-03-07] MEDS ORDERED: HEPARIN 25000 UNIT/250 ML ONE (10:16)
[2019-03-07] MEDS ORDERED: SOD CHLORIDE 0.9% 500 ML ONE (10:36)
[2019-03-07] MEDS ORDERED: IODIXANOL LOCM 50 ML BTL ONE (11:33)
[2019-03-07] MEDS ORDERED: HEPARIN 1000 UNITS/ML 10 ML INJ ONE (13:05)
[2019-03-07] MEDS ORDERED: hydrALAzine 20 MG INJ IV ONE (14:00)
[2019-03-07] MEDS ORDERED: HYDROmorphONE 1 MG/ML SYG IV STA (16:08)
--- NOTE | 2019-03-07 18:29 | OPR ---
Date/Time of Note Date/Time of Note DATE: 03/07/19 TIME: 18:25 Operative Report Procedure Date: March 07, 2019 Preoperative Diagnosis Severe peripheral vascular disease Postoperative Diagnosis Same Operation/Procedure Performed Atherectomy right femoral and popliteal artery Angioplasty right femoral and popliteal artery using 6 x 200 mm balloon Right lower extremity third order degree angiogram Catheter introduction into the abdominal aorta Ultrasound guidance into the left femoral artery Fluoroscopy Conscious sedation moderate sedation for 1 hour Abdominal aortogram Surgeon see signature line [employer] Commander None Anesthesia Type: MAC Estimated Blood Loss: none Transfusion none Specimen None Grafts/Implants none Complications none Disposition: PACU Procedure Description She was placed in supine position prepped and draped in usual sterile fashion timeout was called Under ultrasonic guidance access was gained in the left common femoral artery guidewire was advanced through without any difficulties Bentson wire was advanced into the abdominal aorta 5 short [place] sheath was advanced over a Bentson wire rim catheter advanced into the abdominal aorta aortogram was done followed by passing the catheter from left to right At the conclusion of the operation left lower extremity angiogram was done through the sheath In the position supervision of the angiogram revealed Abdominal aorta normal Left common iliac artery normal Left internal iliac artery normal Left external iliac artery normal Left common femoral artery normal Left superficial femoral artery with minimal disease Left profunda with minimal disease Three-vessel runoff Right common iliac artery with minimal disease Right internal iliac artery normal Right external iliac artery normal Common femoral artery normal Right profunda normal Percent long occlusion right superficial femoral artery extending to the popliteal artery Three-vessel runoff into the foot At this time the 5 [place] sheath was exchanged to a long 45 cm 6 [place] sheath over a Amplatz wire 035 wire was advanced through the 100% occlusion of the right visual femoral artery which was then exchanged to a 014 wire Atherectomy was done using a [place] catheter followed by angioplasty using a 6 x 200 mm balloon Final angiogram revealed less than 10% stenosis in the right superficial femoral artery and popliteal artery She was also given 5000 units of IV heparin All hardware was removed pressure was applied patient tolerated procedure well SIDRA SO MD March 07, 2019 18:29
== END 2019-03-07 20:00 | disposition home or self-care (01) ==
LOC: CCL 08:36 → SDS 08:36 → CCL 20:00
PROVIDERS: ATTEND Thoracic Surgery (Cardiothoracic Vascular Surgery)
DX: I73.9 Peripheral vascular disease, unspecified (principal); E11.9 Type 2 diabetes mellitus without complications; I10 Essential (primary) hypertension
CPT/HCPCS: 37225; 75630; 82962; C1725; C1887; C1894; J0360; J1170; J1644; J2250; J3010; J7040; Q9967; Z7610